=== PATIENT | female | born 1980 | race Caucasian/White ===

== ENCOUNTER 2019-10-20 15:45 | Emergency (ER) | payer BC, SELFPAY ==
[2019-10-20 16:01] VITALS: BP 135/83; PULSE 88; RESP 18; TEMP 36.7; O2SAT 100; BMI 27.3
--- NOTE | 2019-10-20 16:10 | XR_ITS ---
WS: [id number] Left foot, 3 views, 10/20/2019 Clinical Data: injury Comparison: None. Findings: No fractures or dislocations are seen. No bone destruction or erosion is noted. The joint spaces and soft tissues are normal. There is a small Achilles spur. XR/XR foot LT min 3V* [id number] Impression: Negative left foot.
[2019-10-20 16:22] VITALS: O2SAT 99
--- NOTE | 2019-10-20 16:34 | ED_ITS ---
HPI - Extremity Problem General: Chief complaint: Extremity Injury, Lower Stated complaint: left foot/ankle pain Time Seen by Provider: 10/20/19 16:05 History of Present Illness: HPI Narrative: Patient comes in today with complaints of left lower foot pain. Patient reports that 2 weeks ago her horse stepped on her foot and she felt a gotten better but today she was moving a lot more and felt crepitus and pain in the left foot. Patient does not believe that she can work with the pain. Patient appears well. Patient appears in no acute distress. MD Complaint: extremity pain and extremity swelling Review of Systems General: Reports: 10 or more systems reviewed and unremarkable except in HPI and below Musc: Reports: other (left foot pain) PFS ED PFSH: Social History Smoking and tobacco status: current every day smoker Physical Exam Const: COMMON NORMALS: no apparent distress and oriented x3 GENERAL APPEARANCE: cooperative HENMT: COMMON NORMALS: normocephalic, external ears normal, EAC's normal, TM's normal bilaterally and external nose normal HEAD & SCALP: normal to inspection and normocephalic FACE & SINUS: normal facial exam NOSE: external nose normal GENERAL EAR: hearing not grossly impaired EXTERNAL EAR: Yes external ears normal EXTERNAL AUDITORY CANAL: EAC's normal TYMPANIC MEMBRANE: TM's normal bilaterally MOUTH: oral and palatal mucosa normal THROAT: posterior oropharynx normal Eye: COMMON NORMALS: PERRL and EOMs intact bilaterally PUPIL: Yes PERRL Neck/C-Spine: COMMON NORMALS: full ROM and no lymphadenopathy Lymph: LYMPHATIC: no lymphedema noted Chest: COMMONS NORMALS: inspection of chest normal and palpation of chest normal Resp: COMMON NORMALS: normal respiratory effort and clear to auscultation bilaterally AUSCULTATION: clear to auscultation bilaterally Cardio: COMMON NORMALS: regular rate and regular rhythm RATE: regular rate RHYTHM: regular rhythm GI: COMMON NORMALS: normal to inspection, nondistended, normoactive bowel sounds and non-tender : COMMON NORMALS: Yes no CVA tenderness BLADDER/KIDNEY EXAM: Yes no CVA tenderness Back/Pelvis: COMMON NORMALS: no CVA tenderness and thoracic and lumbar spine normal to inspection Extremity: NARRATIVE EXTREMITY EXAM: Tenderness is noted to the dorsal left foot along the first metatarsal. No obvious deformity is noted minimal swelling is noted. GENERAL: Yes edema (mild left foot) Neuro: COMMON NORMALS: oriented x3, moves all extremities and no focal motor deficits Psych: COMMON NORMALS: mental status grossly normal and cooperative Skin: COMMON NORMALS: no rashes or lesions noted GENERAL SKIN EXAM: no rashes or lesions noted Course Vital Signs: Vital signs: Vital Signs Temperature 98.0 F 10/20/19 16:01 Pulse Rate 88 10/20/19 16:01 Respiratory Rate 18 10/20/19 16:01 Blood Pressure 135/83 10/20/19 16:01 Pulse Oximetry 99 10/20/19 16:22 MDM - Extremity (Nontraumatic) MDM Narrative: Medical decision making narrative: Patient comes in today with complaints of left foot pain. On exam there is some mild swelling and some soft tissue tenderness. No obvious deformity. Normal neurovascular. Differential diagnosis fracture, sprain, contusion, arthralgia. X-rays are negative for any fracture. Reviewed exam with patient with recommendations for treatment and need for follow-up. Patient reported understanding and agreed to plan. Discharge Plan Discharge Patient Disposition: Home, Self-Care Clinical Impression: Contusion of ankle or foot, left Condition: Stable Prescriptions: New diclofenac sodium 50 mg tablet,delayed release (DR/EC) 50 mg PO BID Qty: 10 RF: 0 Discharge Orders: Discharge Order (Routine); Ordered 10/20/19 Ordered By: Stas Fabian Discharge Diet: Usual diet Discharge Activity: Increase activity as tolerated Patient Instructions: Arthralgia (ED) Activity Restrictions/Additional Instructions: Activity as tolerated Drink plenty of water with medications Wear good supportive shoe Follow-up with primary care as needed Stand Alone Forms: Work/School Release Coding Level of Care Code ED Embroidery Supervisor for Chg Fwd Exam Comprehensive
[2019-10-20 17:10] VITALS: BP 117/70; PULSE 80; O2SAT 100
== END 2019-10-20 17:10 | disposition home or self-care (01) ==
LOC: ER 17:06
PROVIDERS: Emergency Provider Nurse Practitioner Family
DX: S90.32XA Contusion of left foot, initial encounter (principal); W55.19XA Other contact with horse, initial encounter
CPT/HCPCS: 73630; 99281; 99282

== ENCOUNTER 2020-05-01 13:51 | Emergency (ER) | payer BC, SELFPAY ==
[2020-05-01 14:00] VITALS: BP 143/79; PULSE 96; RESP 20; TEMP 36.9; O2SAT 99; BMI 25.4
--- NOTE | 2020-05-01 14:18 | ECG_ITS ---
[facility] Test Date: 2020-05-01 Pat Name: Mel Bianchi Department: Room: Gender: Female Research Spec: : 1980 Requested By: Pili Ash I Order Number: [id number] Antonette MD: Arabella Lund M.D. Measurements Intervals [place] Rate: 79 P: 48 NH: 163 QRS: 55 QRSD: 85 T: 29 QT: 344 QTc: 395 Interpretive Statements SINUS RHYTHM Compared to ECG 04/21/2019 15:50:02 No significant changes Electronically Signed On 05-02-2020 7:52:34 CDT by Arabella Lund M.D. [id number] f
--- NOTE | 2020-05-01 14:21 | W.ED.SOB ---
HPI - SOB/Dyspnea General: Chief Complaint: Shortness of Breath/Dyspnea Stated Complaint: sob Time Seen by Provider: 05/01/20 14:01 Source: patient Mode of arrival: ambulatory Limitations: no limitations History of Present Illness: HPI Narrative: 39-year-old female patient with a history of COPD who still smokes presents to the emergency department with a 3-day history of shortness of breath cough and wheezing. She says she has used her albuterol inhaler multiple times with no improvement. Yesterday she developed retrosternal chest pain which has persisted and so she is worried. She denies any fever, denies any sick contacts. MD elicited complaint: shortness of breath Pertinent past history: COPD Onset (ago): hour(s) (3) Timing: constant Severity: moderate Exacerbating factors: nothing Relieving factors: nothing Known history of: COPD Associated symptoms: Reports chest pain and cough; Deny abdominal pain, chest congestion, diaphoresis, dizziness, extremity pain, fever(s), hemoptysis, lightheadedness, myalgias, nausea, orthopnea, palpitations, paresthesias, polydipsia, polyuria, rash, sense of impending doom, syncope or vomiting Treatment prior to arrival: bronchodilator (but unhelpful) Review of Systems General: Reports: 10 or more systems reviewed and unremarkable except in HPI and below Const: Denies: fever(s) or diaphoresis Eyes: Denies: change in vision or blurry vision ENMT: Denies: throat pain, enlarged tonsils, odynophagia, hoarseness, mouth pain or swelling of lips/tongue Card: Reports: chest pain; Denies: palpitations, lightheadedness, syncope or orthopnea Resp: Denies: hemoptysis or chest congestion GI: Denies: abdominal pain, nausea or vomiting : Denies: flank pain, difficulty voiding, dysuria, urinary frequency, urinary urgency or urinary hesitancy Musc: Denies: extremity pain Skin/Breast: Denies: rash, pruritus or erythema Neuro: Denies: dizziness Endo: Denies: polyuria or polydipsia PFS ED PFSH: Social History Smoking and tobacco status: current every day smoker Physical Exam Const: COMMON NORMALS: no acute distress, average body habitus, patient oriented x3, no limitations, healthy appearing, alert and well nourished HENMT: COMMON NORMALS: normocephalic, atraumatic and moist oral mucous membranes HEAD & SCALP: normocephalic and atraumatic Neck/C-Spine: COMMON NORMALS: no meningeal signs and no JVD Resp: COMMON NORMALS: normal respiratory effort, No retractions, No use of accessory muscles, clear to auscultation bilaterally and percussion normal AUSCULTATION: clear to auscultation bilaterally and diminished lung sounds PERCUSSION: percussion normal Cardio: COMMON NORMALS: no JVD, regular rate, regular rhythm, S1 normal heart sound present, S2 normal heart sound present, No gallops present (Cardio), No clicks present (Cardio), No murmurs present (Cardio), No rub (Cardio) and Peripheral pulses 2+ throughout RATE: regular rate RHYTHM: regular rhythm HEART SOUNDS: S1 normal heart sound present and S2 normal heart sound present PERIPHERAL PULSES: Peripheral pulses 2+ throughout GI: COMMON NORMALS: Normal to inspection, nondistended, normoactive bowel sounds present, Soft to palpation, non-tender, No hepatosplenomegaly present, no masses and no bruits PALPATION: Yes Soft to palpation and Yes No hepatosplenomegaly present Extremity: COMMON NORMALS: normal to inspection, full ROM, capillary refill normal, no calf tenderness and no pedal edema Neuro: COMMON NORMALS: patient oriented x3 SENSORIUM/ORIENTATION: Yes alert MENINGEAL SIGNS: Yes no meningeal signs Skin: COMMON NORMALS: no rashes or lesions noted, no wounds, turgor normal, no jaundice, no petechiae and no mottling GENERAL SKIN EXAM: no rashes or lesions noted and turgor normal Course Reevaluation(s): Reevaluation #1: Discussed her lab and imaging findings with her. Negative for acute findings. She says she obtained tremendous relief following the DuoNeb breathing treatment. I believe she is having a COPD exacerbation. We will discharge her home with a prescription for prednisone and azithromycin. She voiced understanding and she is in agreement with this plan. Time: 16:36 Vital Signs: Vital signs: Vital Signs Temperature 98.4 F 05/01/20 14:00 Pulse Rate 74 05/01/20 16:54 Respiratory Rate 16 05/01/20 16:54 Blood Pressure 114/72 05/01/20 16:54 Pulse Oximetry 98 05/01/20 16:54 MDM - SOB/Dyspnea MDM Narrative: Medical decision making narrative: 59-year-old female patient who presents to the emergency department with symptoms consistent with COPD exacerbation. She has a history of COPD, continues to smoke, and had wheezing, shortness of breath at home and decreased air movement on examination. She obtained significant improvement following a DuoNeb treatment and she was managed as a case of COPD exacerbation. Medical Records: Attestation: I reviewed the patient's medical records. Lab Data: Attestation: I reviewed the patient's lab results. Labs: Lab Results 05/01/20 05/01/20 05/01/20 Range/Units 14:30 14:30 14:30 WBC 6.9 (4.0-10.0) 10^3/ uL RBC 4.33 (4.1-5.3) 10^6/u L Hgb 13.9 (11.5-15.3) g/dL Hct 42.2 (37.0-47.0) % MCV 97.5 (81-99) fL MCH 32.1 (28.0-34.0) pg MCHC 32.9 (30.0-36.0) g/dL RDW 11.8 L (12.1-15.1) % Plt Count 205 (130-400) 10^3/c mm MPV 11.3 H (7.4-10.4) fL Neut % (Auto) 58.2 % Lymph % (Auto) 31.7 % Cottle % (Auto) 6.5 % Eos % (Auto) 2.6 % Baso % (Auto) 0.9 % Neut # (Auto) 4.00 (1.8-7.7) 10^3/u L Lymph # (Auto) 2.2 (0.8-4.8) 10^3/u L Cottle # (Auto) 0.5 (0.2-0.9) 10^3/u L Eos # (Auto) 0.2 (0.0-0.8) 10^3/u L Baso # (Auto) 0.1 (0.0-0.1) 10^3/u L Nucleated RBC % (a uto) 0 % Nucleated RBCs # 0.0 /100WBC Sodium 138 (136-145) mmol/L Potassium 4.0 (3.5-5.1) mmol/L Chloride 105 (98-107) mmol/L Carbon Dioxide 20 L (22-29) mmol/L Anion Gap 17.0 (5-19) BUN 13 (6-20) mg/dL Creatinine 0.6 (0.5-0.9) mg/dL GFR Calculation 111.3 (90-130) mL/min Glucose 95 (65-115) mg/dL Calculated Osmolal ity 282 L (285-295) mOsm/k g Calcium 8.9 (8.5-10.5) mg/dL Total Bilirubin 0.3 (0.15-1.2) mg/dL AST 9 (0-32) U/L ALT 15 (0-33) U/L Alkaline Phosphata se 79 (35-105) IU/L Troponin T Gen 5 n g/L 6 (0-10) ng/L C-Reactive Protein 0.9 (0.0-4.9) mg/L Total Protein 6.9 (6.6-8.7) g/dL Albumin 4.3 (3.5-5.2) g/dL Globulin 2.6 (1.3-4.6) g/dL Imaging Data^: CXR: Radiologist's impression: [place] [address] XRay Report Signed Patient: Mel Bianchi #: [id number] : 1980Acct#:[id number] Age/Sex: 39 / FADM Date: 05/01/20 Loc: [facility]/Bed: Attending Dr: Ordering Provider/Ordering MD: Pili Ash [place] [facility] [place] of Service: 05/01/20 Procedure(s): XR chest 2V* [id number] Accession Number(s): [id number] Report Number: [id number] PROCEDURE INFORMATION: Exam: XR Chest, 2 Views Exam date and time: 05/01/2020 3:12 PM Age: 39 years old Clinical indication: Cough and shortness of breath; Smoker's cough; Patient HX: HX of copd; Additional info: SOB, cough TECHNIQUE: Imaging protocol: XR of the chest Views: 2 views. COMPARISON: CR Chest 1 [place] [id number] 04/21/2019 5:44 PM FINDINGS: Lungs: Unremarkable. No consolidation. Pleural space: Unremarkable. No pleural effusion. No pneumothorax. Heart/Mediastinum: Unremarkable. No cardiomegaly. Bones/joints: Unremarkable. XR/XR chest 2V* [id number] IMPRESSION: No acute findings. Dictated By:Jemma Armstrong Signed By:Abeba Armstrongigned Date/Time:05/01/201614 DD/ 13 EKG Data^: EKG 1: Attestation: I personally reviewed and interpreted this EKG as follows: EKG Interpretation Date: 05/01/20 EKG interpretation time: 14:37 Prior EKG tracings: not available for review Interpretation: Normal sinus rhythm. Heart rate 79 bpm. Normal axis. No ST changes. No STEMI. Discharge Plan Discharge Patient Disposition: Home Clinical Impression: Acute exacerbation of chronic obstructive airways disease Condition: Stable Prescriptions: New azithromycin 250 mg tablet See Rx Instructions .ROUTE .COMPLEX Qty: 6 RF: 0 prednisone 20 mg tablet 60 mg PO DAILY 5 Days Qty: 15 RF: 0 Discharge Orders: Discharge Order (Routine); Ordered 05/01/20 Ordered By: Pili Ash Discharge Diet: Usual diet Discharge Activity: Increase activity as tolerated Patient Instructions: Chronic Obstructive Pulmonary Disease (ED) Activity Restrictions/Additional Instructions: Return for any new or worsening symptoms. Follow-up with your primary care provider within 3 days. Use your albuterol inhaler every 4 hours for the next 2 days, then as needed thereafter. Take the antibiotic and steroid as prescribed. Stand Alone Forms: Work/School Release Discharge Date/Time: 05/01/20 16:55 Coding Level of Care Code ED Scrum Master for Chg Fwd Exam Comprehensive
--- NOTE | 2020-05-01 14:30 | PC.NURSE ---
VO WITH READBACK FROM DR. ECHEVARRIA TO HOLD IV UNTIL INSTRUCTED FURTHER
[2020-05-01 14:36] LABS: Basophils # 0.1 10^3/uL (0.0-0.1); Basophils % 0.9 %; Eosinophils # 0.2 10^3/uL (0.0-0.8); Eosinophils % 2.6 %; Hematocrit 42.2 % (37.0-47.0); Hemoglobin 13.9 g/dL (11.5-15.3); Lymphocytes # 2.2 10^3/uL (0.8-4.8); Lymphocytes % 31.7 %; Mean Corpuscular HGB Conc 32.9 g/dL (30.0-36.0); Mean Corpuscular Hemoglobin 32.1 pg (28.0-34.0); Mean Corpuscular Volume 97.5 fL (81-99); Mean Platelet Volume 11.3 fL (7.4-10.4); Monocytes # 0.5 10^3/uL (0.2-0.9); Monocytes % 6.5 %; Neutrophils % 58.2 %; Nucleated Red Blood Cells % 0 %; Platelet Count 205 10^3/cmm (130-400); Red Blood Count 4.33 10^6/uL (4.1-5.3); Red Cell Distribution Width 11.8 % (12.1-15.1); White Blood Count 6.9 10^3/uL (4.0-10.0)
[2020-05-01 14:38] VITALS: BP 109/87; PULSE 82; RESP 20; O2SAT 97
[2020-05-01 14:59] VITALS: PULSE 79; RESP 20; O2SAT 97
[2020-05-01] MEDS: ipratropium-albuterol 3 mL Neb INHALATION (14:59)
[2020-05-01 15:00] VITALS: BP 109/87; PULSE 78; RESP 18; O2SAT 96
[2020-05-01 15:01] LABS: Troponin T (5th) Once 6 ng/L (0-10)
[2020-05-01 15:03] VITALS: PULSE 80
--- NOTE | 2020-05-01 15:11 | XRR_ITS ---
PROCEDURE INFORMATION: Exam: XR Chest, 2 Views Exam date and time: 05/01/2020 3:12 PM Age: 39 years old Clinical indication: Cough and shortness of breath; Smoker's cough; Patient HX: HX of copd; Additional info: SOB, cough TECHNIQUE: Imaging protocol: XR of the chest Views: 2 views. COMPARISON: CR Chest 1 [place] [id number] 04/21/2019 5:44 PM FINDINGS: Lungs: Unremarkable. No consolidation. Pleural space: Unremarkable. No pleural effusion. No pneumothorax. Heart/Mediastinum: Unremarkable. No cardiomegaly. Bones/joints: Unremarkable. XR/XR chest 2V* [id number] IMPRESSION: No acute findings.
[2020-05-01 15:22] LABS: Alanine Aminotransferase 15 U/L (0-33); Albumin Level 4.3 g/dL (3.5-5.2); Alkaline Phosphatase 79 IU/L (35-105); Aspartate Amino Transferase 9 U/L (0-32); Blood Urea Nitrogen 13 mg/dL (6-20); C Reactive Protein 0.9 mg/L (0.0-4.9); Calcium 8.9 mg/dL (8.5-10.5); Carbon Dioxide 20 mmol/L (22-29); Chloride 105 mmol/L (98-107); Globulin 2.6 g/dL (1.3-4.6); Glomerular Filtration Rate 111.3 mL/min (90-130); Glucose 95 mg/dL (65-115); Osmolality Calculated 282 mOsm/kg (285-295); Sodium 138 mmol/L (136-145); Total Bilirubin 0.3 mg/dL (0.15-1.2); Total Protein 6.9 g/dL (6.6-8.7)
[2020-05-01] MEDS: predniSONE 20 mg Tablet 60 MG PO (16:51)
[2020-05-01 16:54] VITALS: BP 114/72; PULSE 74; RESP 16; O2SAT 98
== END 2020-05-01 16:55 | disposition home or self-care (01) ==
PROVIDERS: Emergency Provider Family Medicine
DX: J44.1 Chronic obstructive pulmonary disease with (acute) exacerbation (principal); F17.210 Nicotine dependence, cigarettes, uncomplicated
CPT/HCPCS: 12345; 36415; 71046; 80053; 84484; 85025; 86140; 93005; 94640; 99282; 99284; J7512

== ENCOUNTER 2020-06-24 11:21 | Emergency (ER) | payer SELFPAY ==
[2020-06-24 11:49] VITALS: BP 130/84; PULSE 85; RESP 26; TEMP 36.8; O2SAT 96; BMI 26.4
--- NOTE | 2020-06-24 11:56 | XRR_ITS ---
PROCEDURE INFORMATION: Exam: XR Chest, 1 View Exam date and time: 06/24/2020 12:05 PM Age: 40 years old Clinical indication: Pain and condition or disease; Lung condition and disease; Copd; Complications not specified; Chest pain; Prior surgery; Surgery type: Gb, tubal TECHNIQUE: Imaging protocol: XR of the chest Views: 1 view. COMPARISON: CR XR chest 2V* [id number] 05/01/2020 3:28 PM FINDINGS: Lungs: Unremarkable. No consolidation. Pleural space: Unremarkable. No pleural effusion. No pneumothorax. Heart/Mediastinum: Unremarkable. No cardiomegaly. Bones/joints: Unremarkable. XR/XR chest 1V portable [id number] IMPRESSION: No acute findings.
--- NOTE | 2020-06-24 11:56 | ECG_ITS ---
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
--- NOTE | 2020-06-24 11:58 | ED_ITS ---
HPI - Chest Pain General: Chief Complaint: Chest Pain Stated Complaint: CP, R ARM PAIN Time Seen by Provider: 06/24/20 11:41 Source: patient Mode of arrival: ambulatory Limitations: no limitations History of Present Illness: MD complaint: chest pain Onset (ago): day(s) (4) Timing of current episode: episodic Prior episodes: No Onset: during rest Pain location: substernal Pain radiation: left arm, abdomen and left shoulder Severity: severe Quality: sharp Relieving factors: nothing Exacerbating factors: nothing Associated symptoms: Reports abdominal pain and dyspnea; Deny diaphoresis, fever(s), leg edema, nausea, palpitations, sense of impending doom, syncope or vomiting Treatment prior to arrival: none Review of Systems General: Reports: 10 or more systems reviewed and unremarkable except in HPI and below Const: Denies: fever(s) or diaphoresis Eyes: Denies: change in vision or blurry vision ENMT: Denies: throat pain, enlarged tonsils, odynophagia, hoarseness, mouth pain or swelling of lips/tongue Card: Denies: palpitations or syncope Resp: Reports: dyspnea GI: Reports: abdominal pain; Denies: nausea or vomiting : Denies: flank pain, difficulty voiding, dysuria, urinary frequency, urinary urgency or urinary hesitancy Musc: Denies: neck pain, back pain or extremity swelling Skin/Breast: Denies: rash, pruritus or erythema Neuro: Denies: headache(s), numbness in extremities or weakness in extremities Endo: Denies: polyuria, polydipsia or tired all the time [facility] ED PFSH: Social History Smoking and tobacco status: current every day smoker Physical Exam Const: COMMON NORMALS: no acute distress, average body habitus, patient oriented x3, no limitations, healthy appearing, alert and well nourished HENMT: COMMON NORMALS: normocephalic, atraumatic and moist oral mucous membranes HEAD & SCALP: normocephalic and atraumatic Neck/C-Spine: COMMON NORMALS: full ROM, supple, no meningeal signs, no JVD and No carotid bruits Chest: COMMONS NORMALS: normal inspection of the chest and normal palpation of entire chest wall Resp: COMMON NORMALS: normal respiratory effort, No retractions, No use of accessory muscles, clear to auscultation bilaterally and percussion normal AUSCULTATION: clear to auscultation bilaterally PERCUSSION: percussion normal Cardio: COMMON NORMALS: no JVD, regular rate, regular rhythm, S1 normal heart sound present, S2 normal heart sound present, No gallops present (Cardio), No clicks present (Cardio), No murmurs present (Cardio), No rub (Cardio) and Peripheral pulses 2+ throughout RATE: regular rate RHYTHM: regular rhythm HEART SOUNDS: S1 normal heart sound present and S2 normal heart sound present PERIPHERAL PULSES: Peripheral pulses 2+ throughout GI: COMMON NORMALS: Soft to palpation, non-tender, No hepatosplenomegaly present, no masses and no bruits PALPATION: Yes Soft to palpation, Yes Tenderness to palpation present (GI) (epigastric) and Yes No hepatosplenomegaly present Extremity: COMMON NORMALS: normal to inspection, full ROM, capillary refill normal, no calf tenderness and no pedal edema Neuro: COMMON NORMALS: patient oriented x3 SENSORIUM/ORIENTATION: Yes alert MENINGEAL SIGNS: Yes no meningeal signs Skin: COMMON NORMALS: no rashes or lesions noted, no wounds, turgor normal, no jaundice, no petechiae and no mottling GENERAL SKIN EXAM: no rashes or lesions noted and turgor normal Course Reevaluation(s): Reevaluation #1: Discussed her lab and imaging findings with her. Negative for acute findings. She obtained a bit of relief following the GI cocktail. She does not want the intravenous Protonix. I advised that she needs to cut down on her coffee intake and will give her a prescription for Protonix and famotidine. She voiced understanding and is in agreement with the plan. Time: 15:17 Vital Signs: Vital signs: Vital Signs Temperature 98.2 F 06/24/20 11:49 Pulse Rate 68 06/24/20 15:45 Respiratory Rate 18 06/24/20 15:45 Blood Pressure 128/74 06/24/20 15:45 Pulse Oximetry 100 06/24/20 15:45 MDM - Chest Pain MDM Narrative: Medical decision making narrative: 40-year-old female patient who presents to the emergency department with chest/epigastric pain. Evaluation is more consistent with gastritis none chest pain. He had negative high- sensitivity troponin x2. Got relief with a GI cocktail. She is discharged home with a prescription for Protonix and famotidine. She drinks an excessive amount of coffee which I think is contributing to her symptoms. Medical Records: Attestation: I reviewed the patient's medical records. Lab Data: Attestation: I reviewed the patient's lab results. Labs: Lab Results 06/24/20 06/24/20 06/24/20 Range/Units 12:10 12:10 12:10 WBC Cancelled Corrected WBC Cancelled RBC Cancelled Hgb Cancelled Hct Cancelled MCV Cancelled MCH Cancelled MCHC Cancelled RDW Cancelled Plt Count Cancelled MPV Cancelled Gran % Cancelled Neut % (Auto) Cancelled Lymph % (Auto) Cancelled [place] % (Auto) Cancelled Eos % (Auto) Cancelled Baso % (Auto) Cancelled Neut # (Auto) Cancelled Lymph # (Auto) Cancelled [place] # (Auto) Cancelled Eos # (Auto) Cancelled Baso # (Auto) Cancelled Absolute Gran (aut o) Cancelled Nucleated RBC % (a uto) Cancelled Nucleated RBCs # Cancelled PT 13.50 (12.1-14.9) SECO NDS INR 1.00 (0.8-1.2) D-Dimer <= 0.27 (0-0.59) ug/mIFE U Sodium 135 L (136-145) mmol/L Potassium 4.1 (3.5-5.1) mmol/L Chloride 103 (98-107) mmol/L Carbon Dioxide 23 (22-29) mmol/L Anion Gap 13.1 (5-19) BUN 10 (6-20) mg/dL Creatinine 0.6 (0.5-0.9) mg/dL GFR Calculation 110.7 (90-130) mL/min Glucose 77 (65-115) mg/dL Calculated Osmolal ity 278 L (285-295) mOsm/k g Calcium 9.4 (8.5-10.5) mg/dL Total Bilirubin 0.4 (0.15-1.2) mg/dL AST 14 (0-32) U/L ALT 22 (0-33) U/L Alkaline Phosphata se 89 (35-105) IU/L Troponin T Baselin e (0-10) ng/L Troponin T 120 Min [place] (0-10) ng/L Delta Troponin T (0-10) ABS# Total Protein 6.6 (6.6-8.7) g/dL Albumin 4.1 (3.5-5.2) g/dL Globulin 2.5 (1.3-4.6) g/dL Lipase 25 (13-60) U/L HCG, Qual (Negative) Urine Color (Yellow) Urine Appearance (CLEAR) Urine pH (5-7) Ur Specific Gravit y (1.005-1.030) Urine Protein (Negative) Urine Glucose (UA) (Normal) Urine Ketones (Negative) Urine Blood (Negative) Urine Nitrate (Negative) Urine Bilirubin (Negative) Urine Urobilinogen (Negative) mg/dL Ur Leukocyte [place] (Negative) Urine RBC (0-2) /hpf Urine WBC (0-5) /hpf Ur Squamous Epith Cells (0-5) /hpf Amorphous Sediment Urine Bacteria (NONE) /hpf Urine Yeast /hpf Urine Opiates Scre en (Negative) ng/mL Ur Barbiturates Sc reen (Negative) ng/mL Ur Phencyclidine S crn (Negative) ng/mL Ur Amphetamines Sc reen (Negative) ng/mL U Benzodiazepines Scrn (Negative) ng/mL Urine Cocaine Scre en (Negative) ng/mL U Marijuana (THC) Screen (Negative) ng/mL 06/24/20 06/24/20 06/24/20 Range/Units 12:10 12:31 12:31 WBC Corrected WBC RBC Hgb Hct MCV MCH MCHC RDW Plt Count MPV Gran % Neut % (Auto) Lymph % (Auto) [place] % (Auto) Eos % (Auto) Baso % (Auto) Neut # (Auto) Lymph # (Auto) [place] # (Auto) Eos # (Auto) Baso # (Auto) Absolute Gran (aut o) Nucleated RBC % (a uto) Nucleated RBCs # PT (12.1-14.9) SECO NDS INR (0.8-1.2) D-Dimer (0-0.59) ug/mIFE U Sodium (136-145) mmol/L Potassium (3.5-5.1) mmol/L Chloride (98-107) mmol/L Carbon Dioxide (22-29) mmol/L Anion Gap (5-19) BUN (6-20) mg/dL Creatinine (0.5-0.9) mg/dL GFR Calculation (90-130) mL/min Glucose (65-115) mg/dL Calculated Osmolal ity (285-295) mOsm/k g Calcium (8.5-10.5) mg/dL Total Bilirubin (0.15-1.2) mg/dL AST (0-32) U/L ALT (0-33) U/L Alkaline Phosphata se (35-105) IU/L Troponin T Baselin e 6 (0-10) ng/L Troponin T 120 Min [place] (0-10) ng/L Delta Troponin T (0-10) ABS# Total Protein (6.6-8.7) g/dL Albumin (3.5-5.2) g/dL Globulin (1.3-4.6) g/dL Lipase (13-60) U/L HCG, Qual Negative (Negative) Urine Color (Yellow) Urine Appearance (CLEAR) Urine pH (5-7) Ur Specific Gravit y (1.005-1.030) Urine Protein (Negative) Urine Glucose (UA) (Normal) Urine Ketones (Negative) Urine Blood (Negative) Urine Nitrate (Negative) Urine Bilirubin (Negative) Urine Urobilinogen (Negative) mg/dL Ur Leukocyte Vani ase (Negative) Urine RBC (0-2) /hpf Urine WBC (0-5) /hpf Ur Squamous Epith Cells (0-5) /hpf Amorphous Sediment Urine Bacteria (NONE) /hpf Urine Yeast /hpf Urine Opiates Scre en Negative (Negative) ng/mL Ur Barbiturates Sc reen Negative (Negative) ng/mL Ur Phencyclidine S crn Negative (Negative) ng/mL Ur Amphetamines Sc reen Negative (Negative) ng/mL U Benzodiazepines Scrn Negative (Negative) ng/mL Urine Cocaine Scre en Negative (Negative) ng/mL U Marijuana (THC) Screen Negative (Negative) ng/mL 06/24/20 06/24/20 06/24/20 Range/Units 12:31 13:52 13:52 WBC 9.5 Corrected WBC RBC 4.24 Hgb 13.5 Hct 41.4 MCV 97.6 MCH 31.8 MCHC 32.6 RDW 11.9 L Plt Count 223 MPV 11.2 H Gran % Neut % (Auto) 65.6 Lymph % (Auto) 26.6 [place] % (Auto) 5.4 Eos % (Auto) 1.5 Baso % (Auto) 0.7 Neut # (Auto) 6.21 Lymph # (Auto) 2.5 [place] # (Auto) 0.5 Eos # (Auto) 0.1 Baso # (Auto) 0.1 Absolute Gran (aut o) Nucleated RBC % (a uto) 0 Nucleated RBCs # 0.0 PT (12.1-14.9) SECO NDS INR (0.8-1.2) D-Dimer (0-0.59) ug/mIFE U Sodium (136-145) mmol/L Potassium (3.5-5.1) mmol/L Chloride (98-107) mmol/L Carbon Dioxide (22-29) mmol/L Anion Gap (5-19) BUN (6-20) mg/dL Creatinine (0.5-0.9) mg/dL GFR Calculation (90-130) mL/min Glucose (65-115) mg/dL Calculated Osmolal ity (285-295) mOsm/k g Calcium (8.5-10.5) mg/dL Total Bilirubin (0.15-1.2) mg/dL AST (0-32) U/L ALT (0-33) U/L Alkaline Phosphata se (35-105) IU/L Troponin T Baselin e (0-10) ng/L Troponin T 120 Min [place] 6.00 (0-10) ng/L Delta Troponin T 0 (0-10) ABS# Total Protein (6.6-8.7) g/dL Albumin (3.5-5.2) g/dL Globulin (1.3-4.6) g/dL Lipase (13-60) U/L HCG, Qual (Negative) Urine Color Straw (Yellow) Urine Appearance Sl hazy (CLEAR) Urine pH 7 (5-7) Ur Specific Gravit y 1.005 (1.005-1.030) Urine Protein Neg (Negative) Urine Glucose (UA) Norm (Normal) Urine Ketones Negative (Negative) Urine Blood Neg (Negative) Urine Nitrate Negative (Negative) Urine Bilirubin Neg (Negative) Urine Urobilinogen Neg (Negative) mg/dL Ur Leukocyte Vani ase Negative (Negative) Urine RBC 0-4 H (0-2) /hpf Urine WBC 0-4 H (0-5) /hpf Ur Squamous Epith Cells 15-25 H (0-5) /hpf Amorphous Sediment Not Reportable Urine Bacteria 2+ H (NONE) /hpf Urine Yeast 2+ H /hpf Urine Opiates Scre en (Negative) ng/mL Ur Barbiturates Sc reen (Negative) ng/mL Ur Phencyclidine S crn (Negative) ng/mL Ur Amphetamines Sc reen (Negative) ng/mL U Benzodiazepines Scrn (Negative) ng/mL Urine Cocaine Scre en (Negative) ng/mL U Marijuana (THC) Screen (Negative) ng/mL Imaging Data^: CXR: Attestation: I personally reviewed and interpreted this imaging study as follows: Radiologist's impression: [place] [address] XRay Report Signed Patient: Mel Bianchi #: [id number] : 1980Acct#:[id number] Age/Sex: 40 / FADM Date: 06/24/20 Loc: ERRoom/Bed: Attending Dr: Ordering Provider/Ordering MD: Pili Ash MD, [facility] [place] Date of Service: 06/24/20 Procedure(s): XR chest 1V portable [id number] Accession Number(s): [id number] Report Number: [id number] PROCEDURE INFORMATION: Exam: XR Chest, 1 View Exam date and time: 06/24/2020 12:05 PM Age: 40 years old Clinical indication: Pain and condition or disease; Lung condition and disease; Copd; Complications not specified; Chest pain; Prior surgery; Surgery type: Gb, tubal TECHNIQUE: Imaging protocol: XR of the chest Views: 1 view. COMPARISON: CR XR chest 2V* [id number] 05/01/2020 3:28 PM FINDINGS: Lungs: Unremarkable. No consolidation. Pleural space: Unremarkable. No pleural effusion. No pneumothorax. Heart/Mediastinum: Unremarkable. No cardiomegaly. Bones/joints: Unremarkable. XR/XR chest 1V portable [id number] IMPRESSION: No acute findings. Dictated By:Zacarias Mccain MD Signed By:Zacarias Mccain MDSigned Date/Time:06/24/20 1229 DD/ 1227 EKG Data^: EKG 1: Attestation: I personally reviewed and interpreted this EKG as follows: EKG interpretation date: 06/24/20 EKG interpretation time: 11:32 Prior EKG tracings: not available for review Interpretation: Sinus rhythm. Heart rate [address] changes. EKG 2: Attestation: I personally reviewed and interpreted this EKG as follows: EKG interpretation date: 06/24/20 EKG interpretation time: 13:50 Prior EKG tracings: available for review Interpretation: Normal sinus rhythm. Heart rate [address] changes. Normal axis. Discharge Plan Discharge Patient Disposition: Home Clinical Impression: Acute gastritis Qualifiers: Gastritis type: unspecified gastritis Gastritis bleeding: without bleeding Qualified Code(s): K29.00 - Acute gastritis without bleeding Condition: Stable Prescriptions: New Protonix 40 mg tablet,delayed release (DR/EC) 40 mg PO DAILY 28 Days RF: 0 famotidine 40 mg tablet 40 mg PO BID Qty: 60 RF: 0 Continued albuterol sulfate 90 mcg/actuation Hfa Aerosol Inhaler 1 inh INHALATION QID PRN (Reason: Shortness Of Breath) RF: 0 Advil 200 mg Tablet 200 - 400 mg PO PRN PRN (Reason: Pain) RF: 0 Discharge Orders: Discharge Order (Routine); Ordered 06/24/20 Ordered By: Pili Ash Discharge Diet: As Directed Discharge Activity: Increase activity as tolerated Patient Instructions: Gastritis (ED), Diet for Ulcers and Gastritis (ED) Activity Restrictions/Additional Instructions: Return for any new or worsening symptoms. Follow-up with your primary care provider within 1 week. Avoid caffeinated product as much as possible, avoid spicy foods, avoid medications like ibuprofen or naproxen. Stand Alone Forms: Work/School Release Discharge Date/Time: 06/24/20 15:50 Coding Level of Care Code ED Fluorescent Lighting Model Maker for Chg Fwd Exam Comprehensive
[2020-06-24] MEDS: lidocaine 2% viscous 15 ML, aluminum-mag hydrox-simethicon 30 ML, sucralfate oral liq 1 GM PO (12:07)
[2020-06-24 12:40] LABS: Alanine Aminotransferase 22 U/L (0-33); Albumin Level 4.1 g/dL (3.5-5.2); Alkaline Phosphatase 89 IU/L (35-105); Anion Gap 13.1 (5-19); Aspartate Amino Transferase 14 U/L (0-32); Blood Urea Nitrogen 10 mg/dL (6-20); Calcium 9.4 mg/dL (8.5-10.5); Carbon Dioxide 23 mmol/L (22-29); Chloride 103 mmol/L (98-107); Globulin 2.5 g/dL (1.3-4.6); Glomerular Filtration Rate 110.7 mL/min (90-130); Glucose 77 mg/dL (65-115); Lipase 25 U/L (13-60); Osmolality Calculated 278 mOsm/kg (285-295); Potassium 4.1 mmol/L (3.5-5.1); Sodium 135 mmol/L (136-145); Total Bilirubin 0.4 mg/dL (0.15-1.2); Total Protein 6.6 g/dL (6.6-8.7)
[2020-06-24 12:41] LABS: Troponin(5th) Baseline 6 ng/L (0-10)
[2020-06-24 12:44] LABS: HCG Qualitative Urine. Negative (Negative)
[2020-06-24] MEDS: nitroglycerin 0.4 mg sublingual Tablet SUBLINGUAL (12:59)
[2020-06-24 13:02] LABS: D Dimer <= 0.27 ug/mIFEU (0-0.59)
[2020-06-24 13:20] LABS: Add Urine Microscopic? YES; Amphetamines Screen Urine Negative (Negative); Barbiturates Screen Urine Negative (Negative); Benzodiazepines Screen Urine Negative (Negative); Bilirubin Urine Neg (Negative); Blood Urine Neg (Negative); Cocaine Screen Urine Negative (Negative); Glucose Urine UA Norm (Normal); Ketones Urine Negative (Negative); Leukocyte Esterase Urine Negative (Negative); Nitrate Urine Negative (Negative); Opiate Screen Urine Negative (Negative); PCP Screen Urine Negative (Negative); Protein Urine Neg (Negative); Specific Gravity, Urine 1.005 (1.005-1.030); THC Screen Urine Negative (Negative); Urine Appearance SL Hazy (CLEAR); Urine Color Straw (Yellow); Urobilinogen Urine Neg (Negative); pH Urine 7 (5-7)
[2020-06-24 13:22] LABS: Add Urine Culture? No; Bacteria Urine 2+ /hpf; RBC Urine 0-4 /hpf (0-2); Squamous Epithelial Cell Urine 15-25 /hpf (0-5); WBC Urine 0-4 /hpf (0-5)
[2020-06-24] MEDS: morphine 4 mg/mL SDV 1 mL IVP (13:26)
[2020-06-24] MEDS: ondansetron 2 mg/ML SDV 2 mL 4 MG IVP (13:26)
--- NOTE | 2020-06-24 13:56 | ECG_ITS ---
[facility] Test Date: 2020-06-24 Pat Name: Mel Bianchi Department: Room: Gender: Female Computer Security Manager: : 1980 Requested By: Pili Ash I Order Number: [id number] Reading MD: LUCERO ESPINOZA Measurements Intervals [place] Rate: 64 P: 44 WA: 142 QRS: 58 QRSD: 82 T: 29 QT: 376 QTc: 390 Interpretive Statements SINUS RHYTHM Compared to ECG 05/01/2020 14:37:04 No significant changes Electronically Signed On 06-24-2020 18:21:46 CDT by LUCERO ESPINOZA [id number]
[2020-06-24 14:11] LABS: Basophils # 0.1 10^3/uL (0.0-0.1); Basophils % 0.7 %; Eosinophils # 0.1 10^3/uL (0.0-0.8); Eosinophils % 1.5 %; Hematocrit 41.4 % (37.0-47.0); Hemoglobin 13.5 g/dL (11.5-15.3); Lymphocytes # 2.5 10^3/uL (0.8-4.8); Lymphocytes % 26.6 %; Mean Corpuscular HGB Conc 32.6 g/dL (30.0-36.0); Mean Corpuscular Hemoglobin 31.8 pg (28.0-34.0); Mean Corpuscular Volume 97.6 fL (81-99); Mean Platelet Volume 11.2 fL (7.4-10.4); Monocytes # 0.5 10^3/uL (0.2-0.9); Monocytes % 5.4 %; Neutrophils # 6.21 10^3/uL (1.8-7.7); Neutrophils % 65.6 %; Nucleated Red Blood Cells % 0 %; Platelet Count 223 10^3/cmm (130-400); Red Blood Count 4.24 10^6/uL (4.1-5.3); Red Cell Distribution Width 11.9 % (12.1-15.1); White Blood Count 9.5 10^3/uL (4.0-10.0)
[2020-06-24 14:48] LABS: Troponin 5 2HR Delta 0 ABS# (0-10)
[2020-06-24 15:45] VITALS: BP 128/74; PULSE 68; RESP 18; O2SAT 100
== END 2020-06-24 15:50 | disposition home or self-care (01) ==
PROVIDERS: Emergency Provider Family Medicine
DX: K29.00 Acute gastritis without bleeding (principal); F17.210 Nicotine dependence, cigarettes, uncomplicated
CPT/HCPCS: 12345; 36415; 71045; 80053; 80306; 81001; 81025; 83690; 84484; 85025; 85378; 85610; 93005; 96375; 99283; J2270; J2405

== ENCOUNTER 2020-09-14 13:15 | Emergency (ER) | payer SELFPAY ==
[2020-09-14 13:34] VITALS: BP 138/87; PULSE 74; RESP 14; TEMP 36.1; O2SAT 99; BMI 31.1
--- NOTE | 2020-09-14 14:24 | ECG_ITS ---
[facility] Test Date: 2020-09-14 Pat Name: Mel Bianchi Department: Room: Gender: Female Credit Analyst: : 1980 Requested By: Lambert Medellin Order Number: [id number] Antonette MD: Alexey Mckeon M.D. Measurements Intervals [place] Rate: 58 P: 24 WA: 142 QRS: 83 QRSD: 80 T: 40 QT: 393 QTc: 388 Interpretive Statements SINUS BRADYCARDIA Compared to ECG 06/24/2020 13:49:55 Sinus rhythm no longer present Electronically Signed On 09-14-2020 17:57:42 INFRASTRUCTURE ARCHITECT by Alexey Mckeon M.D. [id number]
--- NOTE | 2020-09-14 14:24 | XR_ITS ---
WS: [id number] Portable AP upright chest, 09/14/2020 Clinical Data: near syncope Comparison: Portable chest, 06/24/2020. Findings: No nodules, masses or effusions are seen. The heart is normal. The pulmonary vascularity is not increased. No pneumonia or pneumothorax is seen. XR/XR chest 1V portable [id number] Impression: Negative chest.
--- NOTE | 2020-09-14 14:25 | W.ED.DIZZY ---
HPI - Dizziness General: Chief Complaint: Dizziness Stated Complaint: LIGHT HEADED, FALLING Time Seen by Provider: 09/14/20 14:14 History of Present Illness: HPI Narrative: Patient is a well-appearing 40-year-old female seen for near syncope. She states that for the last week or so, she feels near syncopal anytime she stands up. She describes the sensation as I am about to pass out. Sometimes her vision falters at the same time. Sometimes she has tingling and numbness in her hands at the same time. No point time and she felt chest pain, chest pressure, shortness of breath, diaphoresis, and denies recent sickness or fever. She has no aches and no cough and no dysuria. She denies headache associated with it. She has no lateralizing weakness or deficits that she remembers. She takes no medications for blood pressure and her only known medical history is COPD with active smoking. Review of Systems General: Reports: 10 or more systems reviewed and unremarkable except in HPI and below PFSH ED PFSH: Social History Smoking and tobacco status: current every day smoker Female Reproductive History: Date of last menstrual period: 06/20/20 Physical Exam Const: COMMON NORMALS: no acute distress, patient oriented x3 and alert HENMT: COMMON NORMALS: normocephalic and atraumatic HEAD & SCALP: normocephalic and atraumatic Eye: COMMON NORMALS: Equal, round and reactive pupils present, EOMs intact bilaterally and no scleral icterus PUPIL: Yes Equal, round and reactive pupils present Resp: COMMON NORMALS: normal respiratory effort and No retractions Cardio: COMMON NORMALS: regular rhythm and No murmurs present (Cardio) RATE: bradycardic RHYTHM: regular rhythm OTHER: Patient felt near syncopal almost immediately upon standing from the side of the bed. She was able to sit down safely without losing consciousness. GI: COMMON NORMALS: Normal to inspection, nondistended, normoactive bowel sounds present, Soft to palpation and non-tender PALPATION: Yes Soft to palpation Neuro: COMMON NORMALS: patient oriented x3 SENSORIUM/ORIENTATION: Yes alert Skin: COMMON NORMALS: no rashes or lesions noted GENERAL SKIN EXAM: no rashes or lesions noted Course Vital Signs: Vital signs: Vital Signs Temperature 97.0 F L 09/14/20 13:34 Pulse Rate 65 09/14/20 16:19 Respiratory Rate 71 H 09/14/20 14:56 Blood Pressure 116/65 09/14/20 16:19 Pulse Oximetry 100 09/14/20 16:19 MDM - Dizziness MDM Narrative: Medical decision making narrative: Patient remained hemodynamically stable throughout ED course. Symptoms are consistent with orthostatic hypotension. When orthostatic vital signs are taken, blood pressure and heart rate remained stable, however she becomes symptomatic every time she stands up. She was given a liter of normal saline bolus. EKG, chest x-ray, labs are noncontributory. I do not suspect ACS, dehydration, acute kidney injury, arrhythmia, or any other emergent process warranting further work-up at this time. She will be discharged home in stable and improved condition with follow-up to primary care as needed. She was encouraged to drink more water and we talked about strategies to mitigate the risk of falling or passing out. She knows that she needs to stand up slowly from a seated position both at home and at work. She shows good understanding and agrees to the plan. Lab Data: Labs: Lab Results 09/14/20 09/14/20 09/14/20 Range/Units 15:30 15:30 15:30 WBC 9.1 (4.0-10.0) 10^3/ uL RBC 4.66 (4.1-5.3) 10^6/u L Hgb 15.2 (11.5-15.3) g/dL Hct 44.2 (37.0-47.0) % MCV 94.8 (81-99) fL MCH 32.6 (28.0-34.0) pg MCHC 34.4 (30.0-36.0) g/dL RDW 11.8 L (12.1-15.1) % Plt Count 269 (130-400) 10^3/c mm MPV 11.4 H (7.4-10.4) fL Neut % (Auto) 59.4 % Lymph % (Auto) 33.0 % [place] % (Auto) 4.2 % Eos % (Auto) 2.1 % Baso % (Auto) 1.0 % Neut # (Auto) 5.41 (1.8-7.7) 10^3/u L Lymph # (Auto) 3.0 (0.8-4.8) 10^3/u L [place] # (Auto) 0.4 (0.2-0.9) 10^3/u L Eos # (Auto) 0.2 (0.0-0.8) 10^3/u L Baso # (Auto) 0.1 (0.0-0.1) 10^3/u L Nucleated RBC % (a uto) 0 % Nucleated RBCs # 0.0 /100WBC Sodium 137 (136-145) mmol/L Potassium 4.0 (3.5-5.1) mmol/L Chloride 98 (98-107) mmol/L Carbon Dioxide 29 (22-29) mmol/L Anion Gap 14.0 (5-19) BUN 9 (6-20) mg/dL Creatinine 0.7 (0.5-0.9) mg/dL GFR Calculation 92.7 (90-130) mL/min Glucose 89 (65-115) mg/dL Calculated Osmolal ity 282 L (285-295) mOsm/k g Calcium 9.9 (8.5-10.5) mg/dL Total Bilirubin 0.4 (0.15-1.2) mg/dL AST 16 (0-32) U/L ALT 26 (0-33) U/L Alkaline Phosphata se 96 (35-105) IU/L Troponin T Gen 5 n g/L 6 (0-10) ng/L Total Protein 7.4 (6.6-8.7) g/dL Albumin 4.8 (3.5-5.2) g/dL Globulin 2.6 (1.3-4.6) g/dL TSH 1.18 (0.27-4.20) uIU/ mL EKG Data^: EKG 1: EKG interpretation date: 09/14/20 EKG interpretation time: 14:49 Interpretation: Sinus bradycardia, rate of 59, no ST elevation or depression, intervals within normal limits. Normal T wave morphology. Normal GA interval. Discharge Plan Discharge Patient Disposition: Home Clinical Impression: Orthostatic hypotension Condition: Stable Prescriptions: No Action albuterol sulfate 90 mcg/actuation Hfa Aerosol Inhaler 1 inh INHALATION QID PRN (Reason: Shortness Of Breath) RF: 0 ibuprofen [Advil] 200 mg Tablet 200 - 400 mg PO PRN PRN (Reason: Pain) RF: 0 Discharge Orders: Discharge ED (Routine); Ordered 09/14/20 Ordered By: Lambert Medellin Discharge Diet: Usual diet Discharge Activity: Increase activity as tolerated Patient Instructions: Lightheadedness (ED) Activity Restrictions/Additional Instructions: Your EKG, chest x-ray, blood tests are all reassuring. I believe you are suffering from orthostatic hypotension. You can combat this by getting up from seated position very slowly and keeping well-hydrated. Please try replacing coffee with water and drink higher volumes to keep this from happening in the future. Coding Level of Care Code ED Universal Branch Consultant for Chg Fwd Exam Detailed
[2020-09-14 14:56] VITALS: BP 116/83; RESP 71; O2SAT 96
[2020-09-14 15:00] VITALS: BP 128/80; BP 141/78; BP 159/84; PULSE 69; PULSE 72
[2020-09-14] MEDS: sodium chloride 0.9% 1,000 ML 999 ML IV (15:49)
[2020-09-14 15:54] LABS: Basophils # 0.1 10^3/uL (0.0-0.1); Eosinophils # 0.2 10^3/uL (0.0-0.8); Eosinophils % 2.1 %; Hematocrit 44.2 % (37.0-47.0); Hemoglobin 15.2 g/dL (11.5-15.3); Mean Corpuscular HGB Conc 34.4 g/dL (30.0-36.0); Mean Corpuscular Hemoglobin 32.6 pg (28.0-34.0); Mean Corpuscular Volume 94.8 fL (81-99); Mean Platelet Volume 11.4 fL (7.4-10.4); Monocytes # 0.4 10^3/uL (0.2-0.9); Monocytes % 4.2 %; Neutrophils # 5.41 10^3/uL (1.8-7.7); Neutrophils % 59.4 %; Nucleated Red Blood Cells % 0 %; Platelet Count 269 10^3/cmm (130-400); Red Blood Count 4.66 10^6/uL (4.1-5.3); Red Cell Distribution Width 11.8 % (12.1-15.1); White Blood Count 9.1 10^3/uL (4.0-10.0)
[2020-09-14 15:59] VITALS: BP 159/84; PULSE 64; O2SAT 98
[2020-09-14 16:19] VITALS: BP 116/65; PULSE 65; O2SAT 100
[2020-09-14 16:39] LABS: Troponin T (5th) Once 6 ng/L (0-10)
[2020-09-14 16:58] LABS: Alanine Aminotransferase 26 U/L (0-33); Albumin Level 4.8 g/dL (3.5-5.2); Alkaline Phosphatase 96 IU/L (35-105); Aspartate Amino Transferase 16 U/L (0-32); Blood Urea Nitrogen 9 mg/dL (6-20); Calcium 9.9 mg/dL (8.5-10.5); Carbon Dioxide 29 mmol/L (22-29); Chloride 98 mmol/L (98-107); Globulin 2.6 g/dL (1.3-4.6); Glomerular Filtration Rate 92.7 mL/min (90-130); Glucose 89 mg/dL (65-115); Osmolality Calculated 282 mOsm/kg (285-295); Sodium 137 mmol/L (136-145); Thyroid Stimulating Hormone 1.18 uIU/mL (0.27-4.20); Total Bilirubin 0.4 mg/dL (0.15-1.2); Total Protein 7.4 g/dL (6.6-8.7)
[2020-09-14 17:52] VITALS: BP 98/75; PULSE 67; O2SAT 100
== END 2020-09-14 17:53 | disposition home or self-care (01) ==
PROVIDERS: Emergency Provider Student in an Organized Health Care Education/Training Program
DX: I95.1 Orthostatic hypotension (principal); F17.210 Nicotine dependence, cigarettes, uncomplicated
CPT/HCPCS: 12345; 71045; 80053; 84443; 84484; 85025; 93005; 96360; 99283; J7030

== ENCOUNTER 2020-12-06 12:28 | Emergency (ER) | payer SELFPAY ==
[2020-12-06 12:55] VITALS: BP 127/82; PULSE 79; RESP 18; TEMP 36.7; O2SAT 99; BMI 32.1
[2020-12-06 13:11] VITALS: BP 151/85; PULSE 77; RESP 17; O2SAT 99
--- NOTE | 2020-12-06 13:29 | USCV_ITS ---
Mel Bianchi Age: 40 Gender: F : 1980 Exam Date: 12/06/2020 13:42 Ordering Phys: Pili Ash MD [facility] Technologist: Ileana Cannon Exam Location: [facility] [place] Indication: SWELLING HISTORY: FEET AND ANKLE SWELLING X 2 WEEKS PROCEDURES: Venous duplex imaging was performed in bilateral lower extremities. The following venous structures were evaluated: common femoral vein, profunda vein, proximal portion of the greater saphenous vein, superficial femoral vein, and the popliteal vein. In addition, the posterior tibial and peroneal trunk were evaluated. FINDINGS: Normal 2-D Doppler and augmentation and compressibility throughout the lower extremity venous structures. Additional imaging through the proximal calf veins also reveals no thrombus. Limited evaluation of the greater saphenous vein is patent with no thrombus. CONCLUSIONS No DVT bilateral lower extremities. Dr. Michelle Murray DO (Electronically Signed) Final Date: 06 December 2020 15:51 S
--- NOTE | 2020-12-06 14:24 | W.ED.EXTPRO ---
HPI - Extremity Problem General: Chief complaint: Extremity Problem,Nontraumatic Stated complaint: BODY IS SWELLING FROM BLE & UP, SHAKY Time Seen by Provider: 12/06/20 13:05 Source: patient Mode of arrival: ambulatory Limitations: no limitations History of Present Illness: HPI Narrative: Patient is a 40-year-old female who presents to the emergency department with complaints of bilateral foot and leg pain and swelling. She initially thought it was arthritis as the pain started in the foot and paid no attention until she notices leg swelling and cough pain. She is therefore here to be evaluated. She denies any trauma or falls. Denies any long distance travels. No prior history of DVT or pulmonary embolism. MD Complaint: extremity pain and extremity swelling Onset (ago): week(s) (2) Pain Consistency: constant Location: left, right and lower extremity Quality: aching Radiation: proximal Relieving factors: nothing Associated symptoms: Reports arthralgias; Deny chest pain, fever(s), myalgias, rash or short of breath Review of Systems General: Reports: 10 or more systems reviewed and unremarkable except in HPI and below Const: Denies: fever(s) Card: Denies: chest pain Skin/Breast: Denies: rash PFSH ED PFSH: Social History (Reviewed 12/06/20 @ 14:36 by Pili Ash [place] [facility] [place] Smoking and tobacco status: current every day smoker Female Reproductive History: Date of last menstrual period: 06/20/20 Physical Exam Const: COMMON NORMALS: no acute distress, average body habitus, patient oriented x3, no limitations, healthy appearing, alert and well nourished HENMT: COMMON NORMALS: normocephalic, atraumatic and moist oral mucous membranes HEAD & SCALP: normocephalic and atraumatic Neck/C-Spine: COMMON NORMALS: no meningeal signs and no JVD Resp: COMMON NORMALS: normal respiratory effort, No retractions, No use of accessory muscles, clear to auscultation bilaterally and percussion normal AUSCULTATION: clear to auscultation bilaterally PERCUSSION: percussion normal Cardio: COMMON NORMALS: no JVD, regular rate, regular rhythm, S1 normal heart sound present, S2 normal heart sound present, No gallops present (Cardio), No clicks present (Cardio), No murmurs present (Cardio), No rub (Cardio) and Peripheral pulses 2+ throughout RATE: regular rate RHYTHM: regular rhythm HEART SOUNDS: S1 normal heart sound present and S2 normal heart sound present PERIPHERAL PULSES: Peripheral pulses 2+ throughout GI: COMMON NORMALS: Normal to inspection, nondistended, normoactive bowel sounds present, Soft to palpation, non-tender, No hepatosplenomegaly present, no masses and no bruits PALPATION: Yes Soft to palpation and Yes No hepatosplenomegaly present Extremity: COMMON NORMALS: normal to inspection, full ROM, capillary refill normal and no pedal edema GENERAL: Yes calf tenderness (Left greater than right) OTHER: Tenderness at the MTP of both little toes. Neuro: COMMON NORMALS: patient oriented x3 SENSORIUM/ORIENTATION: Yes alert MENINGEAL SIGNS: Yes no meningeal signs Skin: COMMON NORMALS: no rashes or lesions noted, no wounds, turgor normal, no jaundice, no petechiae and no mottling GENERAL SKIN EXAM: no rashes or lesions noted and turgor normal Course Reevaluation(s): Reevaluation #1: Discussed her imaging findings with her. Negative for DVT. We will discharge her home with no new orders and she is advised to take dvni-lnc-aknnzoa analgesia. She voiced understanding and is in agreement with the plan. Time: 14:25 Vital Signs: Vital signs: Vital Signs Temperature 98.1 F 12/06/20 12:55 Pulse Rate 77 12/06/20 13:11 Respiratory Rate 16 12/06/20 14:40 Blood Pressure 119/55 12/06/20 14:40 Pulse Oximetry 99 12/06/20 13:11 MDM - Extremity (Nontraumatic) MDM Narrative: Medical decision making narrative: 40-year-old female patient who presents to the emergency department with bilateral foot and cough pain. Evaluation in the emergency department was unremarkable and she had negative venous Dopplers. She is discharged home with no new orders. Medical Records: Attestation: I reviewed the patient's medical records. Imaging Data^: US Vascular: Attestation: I personally reviewed and interpreted this imaging study as follows: Radiologist's impression: [address] [address] Ultrasound Report Signed Patient: Mel Bianchi #: [id number] : 1980Acct#:[id number] Age/Sex: 40 / FADM Date: 12/06/20 Loc: ERRoom/Bed: Attending Dr: Ordering Provider/Ordering MD: Pili Ash MD, KATI Date of Service: 12/06/20 Procedure(s): [place] [id number] Accession Number(s): [id number] Report Number: [id number] Mel Bianchi Age: 40 Gender: F : 1980 Exam Date: 12/06/2020 13:42 Ordering Phys: Pili Ash [place] [facility] [facility] [place] Technologist: Ileana Cannon Exam Location: [facility] [place] Indication: SWELLING HISTORY: FEET AND ANKLE SWELLING X 2 WEEKS PROCEDURES: Venous duplex imaging was performed in bilateral lower extremities. The following venous structures were evaluated: common femoral vein, profunda vein, proximal portion of the greater saphenous vein, superficial femoral vein, and the popliteal vein. In addition, the posterior tibial and peroneal trunk were evaluated. FINDINGS: Normal 2-D Doppler and augmentation and compressibility throughout the lower extremity venous structures. Additional imaging through the proximal calf veins also reveals no thrombus. Limited evaluation of the greater saphenous vein is patent with no thrombus. CONCLUSIONS No DVT bilateral lower extremities. Dr. Michelle Murray DO (Electronically Signed) Final Date: 06 December 2020 15:51 S Discharge Plan Discharge Patient Disposition: Home Clinical Impression: Acute leg pain Qualifiers: Laterality: unspecified laterality Qualified Code(s): M79.606 - Pain in leg, unspecified Condition: Stable Prescriptions: Continued albuterol sulfate 90 mcg/actuation Hfa Aerosol Inhaler 1 inh INHALATION QID PRN (Reason: Shortness Of Breath) RF: 0 ibuprofen [Advil] 200 mg Tablet 200 - 400 mg PO PRN PRN (Reason: Pain) RF: 0 Discharge Orders: Discharge ED (Routine); Ordered 12/06/20 Ordered By: Pili Ash Discharge Diet: Usual diet Discharge Activity: Increase activity as tolerated Patient Instructions: Arthralgia (ED) Activity Restrictions/Additional Instructions: Return for any new or worsening symptoms. Follow-up with your primary care provider within 3 days. Take Tylenol or ibuprofen as needed for pain. Coding Level of Care Code ED University Controller for Sandig Fwd Exam Comprehensive
[2020-12-06 14:40] VITALS: BP 119/55; RESP 16
== END 2020-12-06 14:41 | disposition home or self-care (01) ==
PROVIDERS: Emergency Provider Family Medicine
DX: M79.605 Pain in left leg (principal); M79.604 Pain in right leg; F17.210 Nicotine dependence, cigarettes, uncomplicated
CPT/HCPCS: 93970; 99282

== ENCOUNTER 2020-12-22 15:51 | Emergency (ER) | payer SELFPAY ==
[2020-12-22 16:14] VITALS: BP 136/91; PULSE 90; RESP 18; TEMP 36.8; O2SAT 98; BMI 32.1
--- NOTE | 2020-12-22 16:29 | XRR_ITS ---
PROCEDURE INFORMATION: Exam: XR Right Hand Exam date and time: 12/22/2020 4:33 PM Age: 40 years old Clinical indication: Pain; Finger(s) and hand; Right; Additional info: Right hand pain-2nd digit TECHNIQUE: Imaging protocol: XR Right hand. Views: 3 or more views. COMPARISON: No relevant prior studies available. FINDINGS: Bones/joints: Normal. Soft tissues: Mild soft tissue swelling of the index and middle fingers. No opaque foreign body is identified. XR/XR hand RT min 3V* [id number] IMPRESSION: No acute findings.
[2020-12-22 17:46] LABS: Bacteria Urine TRACE /hpf; Bilirubin Urine Neg (Negative); Blood Urine Neg (Negative); Glucose Urine UA Norm (Normal); Ketones Urine Negative (Negative); Leukocyte Esterase Urine Trace (Negative); Nitrate Urine Negative (Negative); Protein Urine Neg (Negative); RBC Urine RARE /hpf (0-2); Specific Gravity, Urine 1.005 (1.005-1.030); Urine Appearance Clear (CLEAR); Urine Color Yellow (Yellow); Urobilinogen Urine Norm (Negative); pH Urine 6 (5-7)
--- NOTE | 2020-12-22 17:55 | ED_ITS ---
HPI - Extremity Problem General: Chief complaint: Extremity Injury, Upper Stated complaint: R HAND INJURY Time Seen by Provider: 12/22/20 16:37 Source: patient Mode of arrival: ambulatory Limitations: no limitations History of Present Illness: HPI Narrative: 40-year-old female patient presents to the emergency department with complaints of right finger pain. She reports was trimming trees couple of days ago. States got her right finger/hand caught , pinched between branches. She is complaining of redness and swelling/pain to the right second MCP. She denies fever or chills. She also reports right- sided low back pain that is worse with movement MD Complaint: extremity pain, extremity swelling and joint pain Onset (ago): day(s) (1) Location: right and upper extremity Radiation: none Relieving factors: immobilization and rest Exacerbating factors: range of motion Associated symptoms: Deny chest pain, fever(s) or rash Review of Systems General: Reports: 10 or more systems reviewed and unremarkable except in HPI and below Const: Denies: fever(s), chills or diaphoresis Eyes: Denies: blurry vision or eye redness ENMT: Denies: throat pain, dental pain or disequilibrium Card: Denies: chest pain, palpitations or irregular heart rhythm Resp: Denies: dyspnea, productive cough, non-productive cough or wheezing GI: Denies: abdominal pain, nausea, vomiting, hematemesis, heartburn, diarrhea or constipation : Denies: difficulty voiding or dysuria Musc: Reports: back pain and extremity pain (rt finger); Denies: neck pain, joint pain or joint stiffness Skin/Breast: Denies: rash or pruritus Neuro: Denies: headache(s), weakness in extremities or behavioral changes Psych: Denies: anxiety, depression or change in appetite Rod/Lymph: Denies: easy bruising PFSH ED PFSH: Social History Smoking and tobacco status: current every day smoker Female Reproductive History: Date of last menstrual period: 06/20/20 Physical Exam Const: COMMON NORMALS: no acute distress, patient oriented x3, healthy appearing and alert GENERAL APPEARANCE: cooperative, comfortable and well hydrated HENMT: COMMON NORMALS: normocephalic, Normal external nose present and moist oral mucous membranes HEAD & SCALP: normocephalic NOSE: Normal external nose present Eye: COMMON NORMALS: Equal, round and reactive pupils present and EOMs intact bilaterally GENERAL EYE: appearance normal, both eyes and all related str uctures PUPIL: Yes Equal, round and reactive pupils present Neck/C-Spine: COMMON NORMALS: full ROM and no lymphadenopathy GENERAL: Yes normal visual inspection and Yes trachea midline CERVICAL SPINE: Yes cervical ROM normal Lymph: LYMPHATIC: no lymphadenopathy noted Chest: COMMONS NORMALS: normal inspection of the chest Resp: COMMON NORMALS: normal respiratory effort and clear to auscultation bilaterally AUSCULTATION: clear to auscultation bilaterally Cardio: COMMON NORMALS: regular rhythm, S1 normal heart sound present and S2 normal heart sound present RHYTHM: regular rhythm HEART SOUNDS: S1 normal heart sound present and S2 normal heart sound present GI: COMMON NORMALS: Soft to palpation and non-tender INSPECTION: Yes normal to inspection PALPATION: Yes Soft to palpation : COMMON NORMALS: Yes no CVA tenderness BLADDER/KIDNEY EXAM: Yes no CVA tenderness Back/Pelvis: COMMON NORMALS: no CVA tenderness, thoracic and lumbar spine normal to inspection and straight leg raise negative bilaterally THORACIC SPINE/UPPER BACK: Yes normal to inspection and Yes thoracic ROM normal LUMBAR SPINE/LOWER BACK: Yes normal to inspection, Yes lumbar ROM normal, Yes pain with ROM, No lumbar spinal tenderness, Yes paraspinal muscle tenderness Lumbar paraspinal muscle tenderness: right and No paraspinal muscle spasm PELVIS: Yes buttocks normal SACROILIAC JOINTS: Yes SI joints normal Extremity: COMMON NORMALS: normal to inspection, capillary refill normal, no clubbing, cyanosis or edema and no pedal edema GENERAL: Yes normal exam except as noted RIGHT UPPER EXTREMITY: Yes hand & digits (rt 2nd distal mcp with erythema, increased warmth, no wounds/scab) Right hand and digits: Yes palpation (pain to the 2nd distal MCP) and Yes neurovascular exam (distally intact) Neuro: COMMON NORMALS: patient oriented x3 and no focal motor deficits SENSORIUM/ORIENTATION: Yes alert GAIT: Yes Normal gait present MOTOR EXAM: 5/5 motor strength present throughout Psych: COMMON NORMALS: mental status grossly normal, Normal thought process present and cooperative ACTIVITY/MOTOR BEHAVIOR: Yes appropriate eye contact THOUGHT PROCESS: Normal thought process present Skin: COMMON NORMALS: no rashes or lesions noted, no wounds, turgor normal, no petechiae and no mottling GENERAL SKIN EXAM: no rashes or lesions noted, elasticity normal and turgor normal Course Vital Signs: Vital signs: Vital Signs Temperature 98.3 F 12/22/20 16:14 Pulse Rate 90 12/22/20 16:14 Respiratory Rate 18 12/22/20 16:14 Blood Pressure 136/91 12/22/20 16:14 Pulse Oximetry 98 12/22/20 16:14 MDM - Extremity (Nontraumatic) Lab Data: Labs: Lab Results 12/22/20 Range/Units 17:10 Urine Color Yellow (Yellow) Urine Appearance Clear (CLEAR) Urine pH 6 (5-7) Ur Specific Gravit y 1.005 (1.005-1.030) Urine Protein Neg (Negative) Urine Glucose (UA) Norm (Normal) Urine Ketones Negative (Negative) Urine Blood Neg (Negative) Urine Nitrate Negative (Negative) Urine Bilirubin Neg (Negative) Urine Urobilinogen Norm (Negative) mg/dL Ur Leukocyte Vani ase Trace H (Negative) Urine RBC Rare (0-2) /hpf Urine WBC None (0-5) /hpf Ur Squamous Epith Cells 5-10 H (0-5) /hpf Amorphous Sediment Not Reportable Urine Bacteria Trace (NONE) /hpf Imaging Data^: Other Xray: Radiologist's impression: [place] [address] XRay Report Signed Patient: Mel Bianchi Unit #: [id number] : 1980 Age/Sex: 40 / F ADM Date: 12/22/20 Loc: ER Room/Bed: Attending Dr: Ordering Provider/Ordering MD: Garfield Johnston Date of Service: 12/22/20 Procedure(s): XR hand RT min 3V* [id number] Accession Number(s): [id number] Report Number: [id number] PROCEDURE INFORMATION: Exam: XR Right Hand Exam date and time: 12/22/2020 4:33 PM Age: 40 years old Clinical indication: Pain; Finger(s) and hand; Right; Additional info: Right hand pain-2nd digit TECHNIQUE: Imaging protocol: XR Right hand. Views: 3 or more views. COMPARISON: No relevant prior studies available. FINDINGS: Bones/joints: Normal. Soft tissues: Mild soft tissue swelling of the index and middle fingers. No opaque foreign body is identified. XR/XR hand RT min 3V* [id number] IMPRESSION: No acute findings. Dictated By: Timmy Szymanski Signed By: Timmy Szymanski Signed Date/Time: 12/22/201709 DD/ 07 Discharge Plan Discharge Patient Disposition: Home Clinical Impression: Contusion of hand Qualifiers: Encounter type: initial encounter Laterality: right Qualified Code(s): S60.221A - Contusion of right hand, initial encounter Back strain Qualifiers: Encounter type: initial encounter Qualified Code(s): S39.012A - Strain of muscle, fascia and tendon of lower back, initial encounter Condition: Stable Prescriptions: New Arthritis Pain (diclofenac) 1 % gel 2 g topical QID Qty: 100 RF: 0 No Action albuterol sulfate 90 mcg/actuation Hfa Aerosol Inhaler 1 inh INHALATION QID PRN (Reason: Shortness Of Breath) RF: 0 ibuprofen [Advil] 200 mg Tablet 200 - 400 mg PO PRN PRN (Reason: Pain) RF: 0 Discharge Orders: Discharge ED (Routine); Ordered 12/22/20 Ordered By: Ara Silverman Discharge Diet: Usual diet Discharge Activity: Resume usual activity Patient Instructions: Low Back Strain (ED), Contusion in Adults (ED), Arthralgia (ED), Opioid Safety Activity Restrictions/Additional Instructions: Cool compresses to the affected area several times daily to help with pain and swelling Use Voltaren gel as needed for pain as directed Return to the emergency department if worsening symptoms or fever/leg weakness Follow-up with primary care tomorrow, social media content manager will be calling you for an appointment Coding Level of Care Code ED Community Organization Aide for g Fwd Exam Comprehensive
== END 2020-12-22 18:53 | disposition home or self-care (01) ==
PROVIDERS: Physician Assistant; Emergency Provider Nurse Practitioner Family
DX: S60.221A Contusion of right hand, initial encounter (principal); S39.012A Strain of muscle, fascia and tendon of lower back, initial encounter; F17.210 Nicotine dependence, cigarettes, uncomplicated; W23.0XXA Caught, crushed, jammed, or pinched between moving objects, initial encounter
CPT/HCPCS: 73130; 81001; 99283

== ENCOUNTER 2021-01-29 17:44 | Emergency (ER) | payer SELFPAY ==
[2021-01-29 18:34] VITALS: BP 151/92; PULSE 95; RESP 18; TEMP 36.6; O2SAT 98; BMI 33.0
[2021-01-29 19:33] LABS: Basophils # 0.1 10^3/uL (0.0-0.1); Basophils % 0.7 %; Eosinophils # 0.3 10^3/uL (0.0-0.8); Eosinophils % 3.3 %; Hematocrit 45.7 % (37.0-47.0); Hemoglobin 15.6 g/dL (11.5-15.3); Lymphocytes # 2.2 10^3/uL (0.8-4.8); Lymphocytes % 25.3 %; Mean Corpuscular HGB Conc 34.1 g/dL (30.0-36.0); Mean Corpuscular Hemoglobin 32.2 pg (28.0-34.0); Mean Corpuscular Volume 94.4 fL (81-99); Monocytes # 0.6 10^3/uL (0.2-0.9); Monocytes % 6.2 %; Neutrophils # 5.68 10^3/uL (1.8-7.7); Nucleated Red Blood Cells % 0 %; Platelet Count 229 10^3/cmm (130-400); Red Blood Count 4.84 10^6/uL (4.1-5.3); Red Cell Distribution Width 12.1 % (12.1-15.1); White Blood Count 8.9 10^3/uL (4.0-10.0)
[2021-01-29] MEDS: vancomycin 1,000 MG in sodium chloride 0.9% 250 ML 250 MG IV (19:33)
[2021-01-29] MEDS: doxycycline 100 mg Tablet PO (19:33)
[2021-01-29 19:34] VITALS: BP 139/80; PULSE 92; RESP 17; O2SAT 97
[2021-01-29 19:53] LABS: HCG, Serum Qual Negative (Negative)
[2021-01-29 19:58] LABS: Lactate (Lactic Acid level) 0.8 mmol/L (0.5-2.2)
[2021-01-29 20:26] LABS: Alanine Aminotransferase 36 U/L (0-33); Albumin Level 3.7 g/dL (3.5-5.2); Alkaline Phosphatase 108 IU/L (35-105); Blood Urea Nitrogen 7 mg/dL (6-20); C Reactive Protein 8.4 mg/L (0.0-4.9); Calcium 8.4 mg/dL (8.5-10.5); Carbon Dioxide 19 mmol/L (22-29); Chloride 102 mmol/L (98-107); Globulin 2.8 g/dL (1.3-4.6); Glomerular Filtration Rate 136.6 mL/min (90-130); Glucose 85 mg/dL (65-115); Osmolality Calculated 273 mOsm/kg (285-295); Sodium 133 mmol/L (136-145); Total Bilirubin 0.4 mg/dL (0.15-1.2); Total Protein 6.5 g/dL (6.6-8.7)
[2021-01-29 20:31] LABS: Erythrocyte Sedimentation Rate 13 mm/hr (0-15)
[2021-01-29] MEDS: diphenhydrAMINE 50 mg/mL SDV 1mL 25 MG IVP (20:35)
[2021-01-29 20:38] VITALS: BP 111/91; PULSE 74; RESP 18; O2SAT 95
[2021-01-29 20:50] LABS: Anion Gap 16.6 (5-19); Aspartate Amino Transferase 17 U/L (0-32); Potassium 4.6 mmol/L (3.5-5.1)
[2021-01-29 22:56] VITALS: BP 112/73; PULSE 78; RESP 18; O2SAT 95
--- NOTE | 2021-01-30 05:03 | W.ED.SKABFB ---
HPI - Skin/Abscess/Foreign Bdy General: Chief complaint: Skin/Abscess/Foreign Body Stated complaint: LEFT LEG SWELLING Time Seen by Provider: 01/29/21 19:00 History of Present Illness: HPI narrative: 40-year-old female with a history of redness, discomfort, and warmth to the left inner thigh. She notes that she pulled a tick off of this area a couple of days prior, and has noted this increasing rash since that time. No fever. No vomiting. MD complaint: rash Onset (ago): day(s) Tetanus up to date: yes Location: LLE Severity: moderate Quality: burning and aching Pain Consistency: constant Relieving factors: none Exacerbating factors: movement Context: witnessed insect bite and other Associated symptoms: Reports itching; Deny arthralgias, chills, cough, fever(s) or short of breath Treatments prior to arrival: OTC topical medication Review of Systems Const: Denies: fever(s) or chills Eyes: Denies: change in vision Card: Denies: chest pain Resp: Denies: dyspnea PFSH ED PFSH: Social History Smoking and tobacco status: current every day smoker Female Reproductive History: Date of last menstrual period: 06/20/20 Physical Exam Const: GENERAL APPEARANCE: well developed ORIENTATION/CONSCIOUSNESS: Yes oriented to person, Yes oriented to place and Yes oriented to time HENMT: COMMON NORMALS: normocephalic, external ears normal and Normal external nose present HEAD & SCALP: normocephalic FACE & SINUS: normal facial exam NOSE: Normal external nose present and No nasal discharge present EXTERNAL EAR: Yes external ears normal Eye: COMMON NORMALS: Equal, round and reactive pupils present, EOMs intact bilaterally and conjunctivae normal EYELID: eyelids normal CONJUNCTIVA: Yes conjunctivae normal PUPIL: Yes Equal, round and reactive pupils present Neck/C-Spine: GENERAL: No tracheal deviation Chest: COMMONS NORMALS: normal inspection of the chest CHEST: No tenderness Resp: COMMON NORMALS: clear to auscultation bilaterally EFFORT & INSPECTION: No tachypneic, No respiratory distress, No retractions, No uses accessory muscles and No tracheal deviation AUSCULTATION: clear to auscultation bilaterally, no rhonchi, no wheezes and lung sounds not diminished Cardio: COMMON NORMALS: regular rate and regular rhythm RATE: regular rate RHYTHM: regular rhythm HEART SOUNDS: no murmurs PERIPHERAL PULSES: radial pulses present GI: INSPECTION: No abdominal distension AUSCULTATION: No Hyperactive bowel sounds present and No Hypoactive bowel sounds present PALPATION: No Guarding due to palpation present (GI) and No Rigid due to palpation PERCUSSION: no dullness to percussion and no tympanic to percussion Neuro: SENSORIUM/ORIENTATION: Yes oriented to person, Yes oriented to place and Yes oriented to time Psych: COMMON NORMALS: mental status grossly normal Skin: NARRATIVE SKIN EXAM: Erythematous plaque with warmth and tenderness to the left inner thigh. There are puncture wounds consistent with a couple of insect bites. No streaking. There is inguinal lymphadenopathy. Course Vital Signs: Vital signs: Vital Signs Temperature 97.9 F 01/29/21 18:34 Pulse Rate 78 01/29/21 22:56 Respiratory Rate 18 01/29/21 22:56 Blood Pressure 112/73 01/29/21 22:56 Pulse Oximetry 95 01/29/21 22:56 MDM - Skin/Abscess/Foreign Bdy MDM Narrative: Medical decision making narrative: Left inner thigh cellulitis following insect bite. White blood cell count is 9. Inflammatory markers are not overly elevated. The patient does not appear septic. She did react to vancomycin infusion, by turning red. The medication was slowed, she was given Benadryl and Solu-Medrol with resolution. She will go home on doxycycline. Tick panel is pending. Lab Data: Labs: Lab Results 01/29/21 01/29/21 01/29/21 Range/Units 19:25 19:25 19:25 WBC 8.9 (4.0-10.0) 10^3/ uL RBC 4.84 (4.1-5.3) 10^6/u L Hgb 15.6 H (11.5-15.3) g/dL Hct 45.7 (37.0-47.0) % MCV 94.4 (81-99) fL MCH 32.2 (28.0-34.0) pg MCHC 34.1 (30.0-36.0) g/dL RDW 12.1 (12.1-15.1) % Plt Count 229 (130-400) 10^3/c mm MPV 11.0 H (7.4-10.4) fL Neut % (Auto) 64.0 % Lymph % (Auto) 25.3 % Casey % (Auto) 6.2 % Eos % (Auto) 3.3 % Baso % (Auto) 0.7 % Neut # (Auto) 5.68 (1.8-7.7) 10^3/u L Lymph # (Auto) 2.2 (0.8-4.8) 10^3/u L Casey # (Auto) 0.6 (0.2-0.9) 10^3/u L Eos # (Auto) 0.3 (0.0-0.8) 10^3/u L Baso # (Auto) 0.1 (0.0-0.1) 10^3/u L Nucleated RBC % (a uto) 0 % Nucleated RBCs # 0.0 /100WBC ESR 13 (0-15) mm/hr Sodium Cancelled Potassium Cancelled Chloride Cancelled Carbon Dioxide Cancelled Anion Gap Cancelled BUN Cancelled Creatinine Cancelled GFR Calculation Cancelled Glucose Cancelled Calculated Osmolal ity Cancelled Lactate (0.5-2.2) mmol/L Calcium Cancelled Total Bilirubin Cancelled AST Cancelled ALT Cancelled Alkaline Phosphata se Cancelled C-Reactive Protein Cancelled Total Protein Cancelled Albumin Cancelled Globulin Cancelled HCG, Qual (Negative) 01/29/21 01/29/21 01/29/21 Range/Units 19:25 19:25 20:05 WBC (4.0-10.0) 10^3/ uL RBC (4.1-5.3) 10^6/u L Hgb (11.5-15.3) g/dL Hct (37.0-47.0) % MCV (81-99) fL MCH (28.0-34.0) pg MCHC (30.0-36.0) g/dL RDW (12.1-15.1) % Plt Count (130-400) 10^3/c mm MPV (7.4-10.4) fL Neut % (Auto) % Lymph % (Auto) % Casey % (Auto) % Eos % (Auto) % Baso % (Auto) % Neut # (Auto) (1.8-7.7) 10^3/u L Lymph # (Auto) (0.8-4.8) 10^3/u L Casey # (Auto) (0.2-0.9) 10^3/u L Eos # (Auto) (0.0-0.8) 10^3/u L Baso # (Auto) (0.0-0.1) 10^3/u L Nucleated RBC % (a uto) % Nucleated RBCs # /100WBC ESR (0-15) mm/hr Sodium 133 L Potassium 4.6 Chloride 102 Carbon Dioxide 19 L Anion Gap 16.6 BUN 7 Creatinine 0.5 GFR Calculation 136.6 H Glucose 85 Calculated Osmolal ity 273 L Lactate 0.8 (0.5-2.2) mmol/L Calcium 8.4 L Total Bilirubin 0.4 AST 17 ALT 36 H Alkaline Phosphata se 108 H C-Reactive Protein 8.4 H Total Protein 6.5 L Albumin 3.7 Globulin 2.8 HCG, Qual Negative (Negative) Discharge Plan Discharge Patient Disposition: Home Clinical Impression: Cellulitis Qualifiers: Site of cellulitis: extremity Site of cellulitis of extremity: lower extremity Laterality: left Qualified Code(s): L03.116 - Cellulitis of left lower limb Condition: Stable Prescriptions: New doxycycline hyclate 100 mg capsule 100 mg PO BID 14 Days Qty: 28 RF: 0 No Action albuterol sulfate 90 mcg/actuation Hfa Aerosol Inhaler 1 inh INHALATION QID PRN (Reason: Shortness Of Breath) RF: 0 ibuprofen [Advil] 200 mg Tablet 200 - 400 mg PO PRN PRN (Reason: Pain) RF: 0 Arthritis Pain (diclofenac) 1 % gel 2 g topical QID Qty: 100 RF: 0 Discharge Orders: Discharge ED (Routine); Ordered 01/29/21 Ordered By: Vaibhav Vee Discharge Diet: Usual diet Discharge Activity: Increase activity as tolerated Patient Instructions: Cellulitis (ED) Activity Restrictions/Additional Instructions: Return for increasing redness, pain, swelling, streaking despite at least 2-3 more doses of antibiotics, fever greater than 100, vomiting liquids or medications, any other concerning symptoms. Take agwi-jih-ozayvda antihistamines such as Benadryl or Claritin for the itch and redness. Do not use Benadryl cream. Stand Alone Forms: Work/School Release Coding Level of Care Code ED Bricklayer Tender for Chg Fwd
== END 2021-01-29 23:22 | disposition home or self-care (01) ==
PROVIDERS: Emergency Provider Emergency Medicine
DX: L03.116 Cellulitis of left lower limb (principal); F17.210 Nicotine dependence, cigarettes, uncomplicated
CPT/HCPCS: 36415; 80053; 83605; 84703; 85025; 85651; 86140; 96365; 96375; 99283; J1200; J2930; J3370; J7050

== ENCOUNTER 2021-10-11 10:08 | Emergency (ER) | payer OTHER, SELFPAY ==
[2021-10-11 10:47] VITALS: BP 111/76; PULSE 86; RESP 18; TEMP 36.7; O2SAT 99; BMI 34.0
[2021-10-11 11:08] VITALS: BP 157/89; PULSE 86; RESP 16; O2SAT 97
--- NOTE | 2021-10-11 11:09 | CT_ITS ---
WS: [id number] CT ABDOMEN PELVIS TECHNIQUE: Noncontrast CT of the abdomen and pelvis with coronal and sagittal reformatted images. CLINICAL INFORMATION: RLQ pain, n/v/d COMPARISON: None. DLP: 1257.[address] scans at [facility] use at least one of these dose optimization techniques: automated e xposure control; mA and/or kV adjustment per patient size (includes targeted exams where dose is matc hed to clinical indication); or iterative reconstruction. FINDINGS: Normal noncontrast liver. Prior cholecystectomy. Mild hepatomegaly. Mild splenomegaly measuring 13.0 cm. Normal GE junction. Lung bases are well aerated. Adrenal glands are normal. No hydronephrosis in either kidney. No obstructing renal or ureteral calcu li. Pelvic phleboliths. Noncontrast pancreas appears normal. Normal caliber abdominal aorta. Enlarged lymph nodes in the cent ral mesentery with a small amount of induration nonspecific but likely reactive and can be seen with mesenteric adenitis. Tiny fat-containing umbilical hernia. Normal sigmoid colon. No evidence of high-grade small or large bowel obstruction. Normal appendix in the RIGHT lower quadrant. Appendix is air-filled. No evidence of acute appendicitis. No periaortic or retroperitoneal lymphadenopathy. No pelvic lymphadenopathy. No inguinal lymphadenopa thy. Disc space narrowing L5-S1 with vacuum disc phenomenon. CT/CT abdomen pelvis wo con [id number] IMPRESSION: 1. Normal air-filled appendix in the RIGHT lower quadrant. No evidence of acut e appendicitis. 2. 1.5 x 1.9 RIGHT ovarian cyst. 3. No free fluid in the pelvis. 4. No evidence of high-grade small or large bowel obstruction. 5. No hydronephrosis in either kidney. 6. Slight induration in the central mesentery with a few prominent lymph nodes likely reactive and can be seen with mesenteric adenitis. 7. No other significant findings.
--- NOTE | 2021-10-11 11:12 | ED_ITS ---
HPI - Abdominal Pain General: Chief Complaint: Abdominal Pain Stated Complaint: Abd Pains in Right side Time Seen by Provider: 10/11/21 10:58 History of Present Illness: Patient is a 41-year-old female comes to the ED with abdominal pain. Symptoms started yesterday evening. Denies any food poisoning or pain starting after she ate. Sudden onset of pain in her right lower quadrant of the abdomen. She has also had diarrhea, nausea and vomiting as well. She says in the last 24 hours she is had approximately eight episodes of diarrhea. Her nausea and vomiting started this morning when she woke up. She had multiple episodes of emesis this morning as well. Denies any worsening or relieving factors. Denies any fever, chills, blood in stool, dysuria or hematuria. Patient says that her son is having similar symptoms as well. Associated Symptoms: Reports diarrhea, nausea and vomiting; Denies chills, constipation, dysuria, fever(s), hematochezia and hematuria Related Data: Date of Last Menstrual Period: 06/20/20 Review of Systems Const: Denies: fever(s), chills or fatigue Eyes: Denies: change in vision or eye discomfort ENMT: Denies: throat pain, odynophagia, nasal discharge or nasal congestion Card: Denies: chest pain, palpitations, edema, swelling of feet/ankles, dyspnea on exertion or orthopnea Resp: Denies: dyspnea, productive cough or non-productive cough GI: Reports: abdominal pain, nausea, vomiting and diarrhea; Denies: constipation or hematochezia : Denies: flank pain, dysuria or hematuria Musc: Denies: neck pain, back pain or extremity swelling Skin/Breast: Denies: rash or new lesions Neuro: Denies: headache(s), numbness in extremities or weakness in extremities PFSH ED PFSH: Medical History No pertinent family history Surgical History Hx of cholecystectomy Social History Smoking and tobacco status: current every day smoker Female Reproductive History: Date of last menstrual period: 06/20/20 Physical Exam Const: COMMON NORMALS: no acute distress, patient oriented x3 and alert GENERAL APPEARANCE: cooperative and comfortable HENMT: COMMON NORMALS: normocephalic HEAD & SCALP: normocephalic MOUTH: Normal oral and palatal mucosa present THROAT: posterior oropharynx normal and uvula midline Neck/C-Spine: COMMON NORMALS: supple GENERAL: Yes normal visual inspection Resp: COMMON NORMALS: normal respiratory effort, No retractions, No use of accessory muscles and clear to auscultation bilaterally AUSCULTATION: clear to auscultation bilaterally Cardio: COMMON NORMALS: regular rate, regular rhythm, S1 normal heart sound present, S2 normal heart sound present, No gallops present (Cardio), No clicks present (Cardio), No murmurs present (Cardio) and Peripheral pulses 2+ throughout RATE: regular rate RHYTHM: regular rhythm HEART SOUNDS: S1 normal heart sound present and S2 normal heart sound present PERIPHERAL PULSES: Peripheral pulses 2+ throughout GI: COMMON NORMALS: Normal to inspection, nondistended, normoactive bowel sounds present, Soft to palpation and no masses PALPATION: Yes Soft to palpation and Yes Tenderness to palpation present (GI) Details: RLQ : COMMON NORMALS: Yes no CVA tenderness BLADDER/KIDNEY EXAM: Yes no CVA tenderness Back/Pelvis: COMMON NORMALS: no CVA tenderness Extremity: COMMON NORMALS: normal to inspection Neuro: COMMON NORMALS: patient oriented x3 SENSORIUM/ORIENTATION: Yes alert GAIT: Yes Normal gait present Skin: GENERAL SKIN EXAM: dry skin Course Vital Signs: Vital signs: Vital Signs Temperature 98.1 F 10/11/21 10:47 Pulse Rate 75 10/11/21 14:23 Respiratory Rate 16 10/11/21 14:23 Blood Pressure 113/75 10/11/21 14:23 Pulse Oximetry 96 10/11/21 14:23 MDM - Abdominal Pain Medical Decision Making Patient is a 41-year-old female comes to the ED with abdominal pain, nausea, vomiting and diarrhea. Symptoms started yesterday. Vitals are stable and patient appears nontoxic and in no acute distress or pain. She has some right lower quadrant tenderness upon palpation but the rest of exam is benign. All labs were unremarkable. CT of abdomen pelvis showed a right ovarian cyst and mesenteric adenitis. Patient was was given Zofran here in the ED and she was able to keep fluids down. Patient diagnosed with viral gastroenteritis mesenteric adenitis and discharged home with a prescription for Zofran and dicyclomine. She was told to follow-up with her PCP in 7 to 10 days reevaluation. Return to ED precautions given. Patient understood and agree with plan. Lab Data I reviewed the patient's lab results. : 10/11/21 11:55 10/11/21 11:55 Labs/Radiology: Radiology Impressions Abdomen/Pelvis CT 10/11/21 11:09 IMPRESSION: 1. Normal air-filled appendix in the RIGHT lower quadrant. No evidence of acute appendicitis. 2. 1.5 x 1.9 RIGHT ovarian cyst. 3. No free fluid in the pelvis. 4. No evidence of high-grade small or large bowel obstruction. 5. No hydronephrosis in either kidney. 6. Slight induration in the central mesentery with a few prominent lymph nodes likely reactive and can be seen with mesenteric adenitis. 7. No other significant findings. Laboratory Results WBC 8.0 10^3/uL (4.0-10.0) 10/11/21 11:55 RBC 4.62 10^6/uL (4.1-5.3) 10/11/21 11:55 Hgb 14.4 g/dL (11.5-15.3) 10/11/21 11:55 Hct 43.7 % (37.0-47.0) 10/11/21 11:55 MCV 94.6 fl (81-99) 10/11/21 11:55 MCH 31.2 pg (28.0-34.0) 10/11/21 11:55 MCHC 33.0 g/dL (30.0-36.0) 10/11/21 11:55 RDW 12.3 % (12.1-15.1) 10/11/21 11:55 Plt Count 239 10^3/cmm (130-400) 10/11/21 11:55 MPV 11.1 fL (7.4-10.4) H 10/11/21 11:55 Neut % (Auto) 72.1 % 10/11/21 11:55 Lymph % (Auto) 16.9 % 10/11/21 11:55 [place] % (Auto) 8.3 % 10/11/21 11:55 Eos % (Auto) 1.8 % 10/11/21 11:55 Baso % (Auto) 0.4 % 10/11/21 11:55 Neut # (Auto) 5.77 10^3/uL (1.8-7.7) 10/11/21 11:55 Lymph # (Auto) 1.4 10^3/uL (0.8-4.8) 10/11/21 11:55 [place] # (Auto) 0.7 10^3/uL (0.2-0.9) 10/11/21 11:55 Eos # (Auto) 0.1 10^3/uL (0.0-0.8) 10/11/21 11:55 Baso # (Auto) 0.0 10^3/uL (0.0-0.1) 10/11/21 11:55 Nucleated RBC % (auto) 0 % 10/11/21 11:55 Nucleated RBCs # 0.0 /100WBC 10/11/21 11:55 Sodium 137 mmol/L (136-145) 10/11/21 11:55 Potassium 3.9 mmol/L (3.5-5.1) 10/11/21 11:55 Chloride 104 mmol/L (98-107) 10/11/21 11:55 Carbon Dioxide 22 mmol/L (22-29) 10/11/21 11:55 Anion Gap 14.9 (5-19) 10/11/21 11:55 BUN 11 mg/dL (6-20) 10/11/21 11:55 Creatinine 0.6 mg/dL (0.5-0.9) 10/11/21 11:55 GFR Calculation 110.2 mL/min (90-130) 10/11/21 11:55 Glucose 101 mg/dL (65-115) 10/11/21 11:55 Calculated Osmolality 284 mOsm/kg (285-295) L 10/11/21 11:55 Calcium 9.0 mg/dL (8.5-10.5) 10/11/21 11:55 Total Bilirubin 0.4 mg/dL (0.15-1.2) 10/11/21 11:55 AST 15 U/L (0-32) 10/11/21 11:55 ALT 31 U/L (0-33) 10/11/21 11:55 Alkaline Phosphatase 109 IU/L (35-105) H 10/11/21 11:55 Total Protein 7.0 g/dL (6.6-8.7) 10/11/21 11:55 Albumin 4.2 g/dL (3.5-5.2) 10/11/21 11:55 Globulin 2.8 g/dL (1.3-4.6) 10/11/21 11:55 Lipase 28 U/L (13-60) 10/11/21 11:55 HCG, Qual Negative (Negative) 10/11/21 11:55 Discharge Plan Discharge Patient Disposition: Home Clinical Impression: Viral gastroenteritis, Mesenteric adenitis Condition: Stable Prescriptions: New ondansetron 4 mg tablet,disintegrating 4 mg PO Q8H PRN (Reason: nausea and vomiting) Qty: 20 0RF dicyclomine 20 mg tablet 20 mg PO QID PRN (Reason: diarrhea and abdominal cramping) Qty: 30 0RF No Action albuterol sulfate 90 mcg/actuation Hfa Aerosol Inhaler 1 inh INHALATION QID PRN (Reason: Shortness Of Breath) 0RF ibuprofen [Advil] 200 mg Tablet 200 - 400 mg PO PRN PRN (Reason: Pain) 0RF Arthritis Pain (diclofenac) 1 % gel 2 g topical QID Qty: 100 0RF Rx Instructions: apply to single elbow, wrist or hand; for hand includes palm/fingers/back of hand Discharge Orders: Discharge ED (Routine); Ordered 10/11/21 Ordered By: Garfield Johnston Discharge Diet: Advance as tolerated and Clear Liquid Discharge Activity: Increase activity as tolerated Patient Instructions: Gastroenteritis (ED), Mesenteric Adenitis (ED) Activity Restrictions/Additional Instructions: Follow-up with medical provider as directed in 5 to 7 days reevaluation. Make sure to drink plenty of fluids and stay hydrated.Take medications as prescribed. Return to the ER or your medical provider if condition worsens. Please read and understand discharge instructions. Thank you for choosing [facility] for your healthcare needs today. Please realize this is an emergency room and that we are providing you with a medical screening exam and this may not be complete and all inclusive of all the testing and or work up that you may need to determine your ailment or severity of your illness. It is very important that you follow up as instructed or that you return to the Emergency Department should you have concerns or if your condition changes or worsens in any way. Coding Level of Care Code ED Electric Power Line Repairer for Chg Fwd Exam Comprehensive
[2021-10-11 12:13] LABS: Basophils % 0.4 %; Eosinophils # 0.1 10^3/uL (0.0-0.8); Eosinophils % 1.8 %; Hematocrit 43.7 % (37.0-47.0); Hemoglobin 14.4 g/dL (11.5-15.3); Lymphocytes # 1.4 10^3/uL (0.8-4.8); Lymphocytes % 16.9 %; Mean Corpuscular Hemoglobin 31.2 pg (28.0-34.0); Mean Corpuscular Volume 94.6 fl (81-99); Mean Platelet Volume 11.1 fL (7.4-10.4); Monocytes # 0.7 10^3/uL (0.2-0.9); Monocytes % 8.3 %; Neutrophils # 5.77 10^3/uL (1.8-7.7); Neutrophils % 72.1 %; Nucleated Red Blood Cells % 0 %; Platelet Count 239 10^3/cmm (130-400); Red Blood Count 4.62 10^6/uL (4.1-5.3); Red Cell Distribution Width 12.3 % (12.1-15.1)
[2021-10-11 12:29] LABS: HCG, Serum Qual Negative (Negative)
[2021-10-11 12:32] VITALS: BP 124/88; PULSE 77; RESP 18; O2SAT 96
[2021-10-11 12:33] LABS: Alanine Aminotransferase 31 U/L (0-33); Albumin Level 4.2 g/dL (3.5-5.2); Alkaline Phosphatase 109 IU/L (35-105); Anion Gap 14.9 (5-19); Aspartate Amino Transferase 15 U/L (0-32); Blood Urea Nitrogen 11 mg/dL (6-20); Carbon Dioxide 22 mmol/L (22-29); Chloride 104 mmol/L (98-107); Globulin 2.8 g/dL (1.3-4.6); Glomerular Filtration Rate 110.2 mL/min (90-130); Glucose 101 mg/dL (65-115); Lipase 28 U/L (13-60); Osmolality Calculated 284 mOsm/kg (285-295); Potassium 3.9 mmol/L (3.5-5.1); Sodium 137 mmol/L (136-145); Total Bilirubin 0.4 mg/dL (0.15-1.2)
[2021-10-11] MEDS: ondansetron 4 MG Tablet PO (12:54)
[2021-10-11 13:41] VITALS: BP 116/69; PULSE 82; RESP 18; O2SAT 98
[2021-10-11 14:23] VITALS: BP 113/75; PULSE 75; RESP 16; O2SAT 96
== END 2021-10-11 14:24 | disposition home or self-care (01) ==
PROVIDERS: Emergency Provider Physician Assistant
DX: A08.4 Viral intestinal infection, unspecified (principal); I88.0 Nonspecific mesenteric lymphadenitis; F17.210 Nicotine dependence, cigarettes, uncomplicated
CPT/HCPCS: 36415; 74176; 80053; 83690; 84703; 85025; 96374; 96375; 99284; Q0162

== ENCOUNTER 2022-02-11 15:13 | Emergency (ER) | payer OTHER, SELFPAY ==
[2022-02-11 15:34] VITALS: BP 144/84; PULSE 100; RESP 18; TEMP 37.2; O2SAT 98; BMI 34.0
--- NOTE | 2022-02-11 15:47 | XRR_ITS ---
PROCEDURE INFORMATION: Exam: XR Chest Exam date and time: 02/11/2022 4:10 PM Age: 41 years old Clinical indication: Cough and shortness of breath; Additional info: SOB TECHNIQUE: Imaging protocol: Radiologic exam of the chest. Views: 1 view. COMPARISON: CR XR chest 1V portable [id number] 09/14/2020 2:26 PM FINDINGS: Lungs: Unremarkable. No consolidation. Pleural spaces: Unremarkable. No pleural effusion. No pneumothorax. Heart/Mediastinum: Unremarkable. No cardiomegaly. Bones/joints: Unremarkable. XR/XR chest 1V portable [id number] IMPRESSION: No acute findings.
--- NOTE | 2022-02-11 15:48 | ECG_ITS ---
[facility] Test Date: 2022-02-11 Pat Name: Mel Bianchi Department: Room: Gender: Female Audograph Operator: : 1980 Requested By: Erasto Moser Order Number: [id number] Antonette MD: Arabella Lund M.D. Measurements Intervals [place] Rate: 93 P: 41 [place]: 142 QRS: 48 QRSD: 85 T: 23 QT: 351 QTc: 437 Interpretive Statements SINUS RHYTHM Compared to ECG 09/14/2020 14:49:58 Sinus bradycardia no longer present Electronically Signed On 02-12-2022 21:26:07 CDT by Arabella Lund M.D. [id number]
--- NOTE | 2022-02-11 15:49 | W.ED.SOB ---
HPI - SOB/Dyspnea General: Chief Complaint: Shortness of Breath/Dyspnea Stated Complaint: SOB Time Seen by Provider: 02/11/22 15:44 History of Present Illness: HPI Narrative: 41-year-old with history of COPD presents shortness of breath. States it has been ongoing for a week. States that she has had increased exposure to dust. Denies any focal pain. Denies any fevers or chills. Denies lower extremity pain or swelling. Patient is PERC negative. Review of Systems Narrative: - CONSTITUTIONAL: Denies weight loss, fever and chills. - HEENT: Denies changes in vision and hearing. - RESPIRATORY: As above - CV: Denies palpitations and CP. - GI: Denies abdominal pain, nausea, vomiting and diarrhea. - : Denies dysuria and urinary frequency. - MSK: Denies myalgia and joint pain. - SKIN: Denies rash and pruritus. - NEUROLOGICAL: Denies headache, weakness, numbness and syncope. - PSYCHIATRIC: Denies suicidal ideation [facility] ED PFSH: Medical History No pertinent family history Surgical History Hx of cholecystectomy Social History Smoking and tobacco status: current every day smoker Female Reproductive History: Date of last menstrual period: 01/07/22 Physical Exam Narrative: EXAM NARRATIVE: - GENERAL: Alert and oriented x 3. No acute distress. Well-nourished. - EYES: EOMI. Anicteric. - HENT: Atraumatic, no C-spine tenderness. Moist mucous membranes. No scleral icterus. No cervical lymphadenopathy. - LUNGS: Bilateral wheezing. - CARDIOVASCULAR: Regular rate and rhythm. No murmur. No JVD. - ABDOMEN: Soft, non-tender and non-distended. Negative CVA tenderness bilaterally, no rebound or guarding, negative Vergara sign. No palpable masses. - EXTREMITIES: No edema. Non-tender. - SKIN: No rashes or lesions. Warm. - NEUROLOGIC: No meningismus or focal neurological deficits. CN II-XII grossly intact. - PSYCHIATRIC: Cooperative. Appropriate mood and affect. Course Vital Signs: Vital signs: Vital Signs Temperature 99.0 F 02/11/22 15:34 Pulse Rate 91 02/11/22 16:07 Respiratory Rate 20 H 02/11/22 16:01 Blood Pressure 144/84 02/11/22 15:34 Pulse Oximetry 97 02/11/22 16:01 MDM - SOB/Dyspnea Medical Decision Making 41-year-old with history of COPD presents shortness of breath. She has wheezing on exam consistent with COPD exacerbation. Improved albuterol and steroids. Prescription for prednisone provided. X-ray does not reveal pneumothorax or consolidation. EKG and troponin not revealing sign of acute ischemia or acute abnormality. Remainder of lab work is unremarkable. She is saturating well. She is PERC negative. Patient refused COVID and influenza swabs. She has capacity to make this decision. At this time I believe patient would be safe for discharge and outpatient follow-up. Return precautions provided. Plan was reviewed with the patient who expressed understanding. Questions answered. Patient will follow up with PCP. Patient discharged in stable condition. Lab Data : 02/11/22 16:07 02/11/22 16:07 Labs/Radiology: Radiology Impressions Chest X-Ray 02/11/22 15:47 IMPRESSION: No acute findings. Laboratory Results WBC 9.0 10^3/uL (4.0-10.0) 02/11/22 16:07 RBC 3.85 10^6/uL (4.1-5.3) L 02/11/22 16:07 Hgb 12.2 g/dL (11.5-15.3) 02/11/22 16:07 Hct 34.3 % (37.0-47.0) L 02/11/22 16:07 MCV 89.1 fl (81-99) 02/11/22 16:07 MCH 31.7 pg (28.0-34.0) 02/11/22 16:07 MCHC 35.6 g/dL (30.0-36.0) 02/11/22 16:07 RDW 12.0 % (12.1-15.1) L 02/11/22 16:07 Plt Count 293 10^3/cmm (130-400) 02/11/22 16:07 MPV 10.3 fL (7.4-10.4) 02/11/22 16:07 Neut % (Auto) 67.3 % 02/11/22 16:07 Lymph % (Auto) 23.1 % 02/11/22 16:07 [place] % (Auto) 6.5 % 02/11/22 16:07 Eos % (Auto) 2.1 % 02/11/22 16:07 Baso % (Auto) 0.6 % 02/11/22 16:07 Neut # (Auto) 6.05 10^3/uL (1.8-7.7) 02/11/22 16:07 Lymph # (Auto) 2.1 10^3/uL (0.8-4.8) 02/11/22 16:07 [place] # (Auto) 0.6 10^3/uL (0.2-0.9) 02/11/22 16:07 Eos # (Auto) 0.2 10^3/uL (0.0-0.8) 02/11/22 16:07 Baso # (Auto) 0.1 10^3/uL (0.0-0.1) 02/11/22 16:07 Nucleated RBC % (auto) 0 % 02/11/22 16:07 Nucleated RBCs # 0.0 /100WBC 02/11/22 16:07 Sodium 137 mmol/L (136-145) 02/11/22 16:07 Potassium 4.1 mmol/L (3.5-5.1) 02/11/22 16:07 Chloride 103 mmol/L (98-107) 02/11/22 16:07 Carbon Dioxide 23 mmol/L (22-29) 02/11/22 16:07 Anion Gap 15.1 (5-19) 02/11/22 16:07 BUN 7 mg/dL (6-20) 02/11/22 16:07 Creatinine 0.6 mg/dL (0.5-0.9) 02/11/22 16:07 GFR Calculation 110.2 mL/min (90-130) 02/11/22 16:07 Glucose 82 mg/dL (65-115) 02/11/22 16:07 Calculated Osmolality 281 mOsm/kg (285-295) L 02/11/22 16:07 Calcium 8.9 mg/dL (8.5-10.5) 02/11/22 16:07 Total Bilirubin 0.3 mg/dL (0.15-1.2) 02/11/22 16:07 AST 13 U/L (0-32) 02/11/22 16:07 ALT 22 U/L (0-33) 02/11/22 16:07 Alkaline Phosphatase 102 IU/L (35-105) 02/11/22 16:07 Troponin T Baseline 6 ng/L (0-10) 02/11/22 16:07 NT-Pro-B Natriuret Pep 111 pg/mL (0-125) 02/11/22 16:07 Total Protein 6.4 g/dL (6.6-8.7) L 02/11/22 16:07 Albumin 4.2 g/dL (3.5-5.2) 02/11/22 16:07 Globulin 2.2 g/dL (1.3-4.6) 02/11/22 16:07 EKG Data EKG 1: Other EKG Comments: Sinus rhythm, rate of 93, no sign of acute ischemia or other acute abnormality. Discharge Plan Discharge Condition: Stable Prescriptions: No Action albuterol sulfate 90 mcg/actuation Hfa Aerosol Inhaler 1 inh INHALATION QID PRN (Reason: Shortness Of Breath) 0RF ibuprofen [Advil] 200 mg Tablet 200 - 400 mg PO PRN PRN (Reason: Pain) 0RF Arthritis Pain (diclofenac) 1 % gel 2 g topical QID Qty: 100 0RF Rx Instructions: apply to single elbow, wrist or hand; for hand includes palm/fingers/back of hand ondansetron 4 mg tablet,disintegrating 4 mg PO Q8H PRN (Reason: nausea and vomiting) Qty: 20 0RF dicyclomine 20 mg tablet 20 mg PO QID PRN (Reason: diarrhea and abdominal cramping) Qty: 30 0RF Coding Level of Care Code ED Biostatistics Professor for Chg Fwd
[2022-02-11] MEDS: ipratropium-albuterol 3 mL Neb INHALATION (16:00)
[2022-02-11 16:01] VITALS: PULSE 90; RESP 20; O2SAT 97
[2022-02-11 16:07] VITALS: PULSE 91
--- NOTE | 2022-02-11 16:13 | PC.NURSE ---
EKG done at 1610 and shown to ER doctor.
[2022-02-11 16:14] LABS: Basophils # 0.1 10^3/uL (0.0-0.1); Basophils % 0.6 %; Eosinophils # 0.2 10^3/uL (0.0-0.8); Eosinophils % 2.1 %; Hematocrit 34.3 % (37.0-47.0); Hemoglobin 12.2 g/dL (11.5-15.3); Lymphocytes # 2.1 10^3/uL (0.8-4.8); Lymphocytes % 23.1 %; Mean Corpuscular HGB Conc 35.6 g/dL (30.0-36.0); Mean Corpuscular Hemoglobin 31.7 pg (28.0-34.0); Mean Corpuscular Volume 89.1 fl (81-99); Mean Platelet Volume 10.3 fL (7.4-10.4); Monocytes # 0.6 10^3/uL (0.2-0.9); Monocytes % 6.5 %; Neutrophils # 6.05 10^3/uL (1.8-7.7); Neutrophils % 67.3 %; Nucleated Red Blood Cells % 0 %; Platelet Count 293 10^3/cmm (130-400); Red Blood Count 3.85 10^6/uL (4.1-5.3)
[2022-02-11 16:36] LABS: Troponin(5th) Baseline 6 ng/L (0-10)
[2022-02-11 16:46] LABS: Alanine Aminotransferase 22 U/L (0-33); Albumin Level 4.2 g/dL (3.5-5.2); Alkaline Phosphatase 102 IU/L (35-105); Anion Gap 15.1 (5-19); Aspartate Amino Transferase 13 U/L (0-32); Blood Urea Nitrogen 7 mg/dL (6-20); Calcium 8.9 mg/dL (8.5-10.5); Carbon Dioxide 23 mmol/L (22-29); Chloride 103 mmol/L (98-107); Globulin 2.2 g/dL (1.3-4.6); Glomerular Filtration Rate 110.2 mL/min (90-130); Glucose 82 mg/dL (65-115); NT Pro B Type Natriuretic Pept 111 pg/mL (0-125); Osmolality Calculated 281 mOsm/kg (285-295); Potassium 4.1 mmol/L (3.5-5.1); Sodium 137 mmol/L (136-145); Total Bilirubin 0.3 mg/dL (0.15-1.2); Total Protein 6.4 g/dL (6.6-8.7)
[2022-02-11 17:14] VITALS: BP 136/82; PULSE 82; RESP 18; O2SAT 96
== END 2022-02-11 17:22 | disposition home or self-care (01) ==
PROVIDERS: Emergency Provider Emergency Medicine
DX: R06.02 Shortness of breath (principal); J44.9 Chronic obstructive pulmonary disease, unspecified
CPT/HCPCS: 71045; 80053; 83880; 84484; 85025; 93005; 94640; 96374; 99285; J2930

== ENCOUNTER 2023-10-15 11:31 | Emergency (ER) | payer OTHER, SELFPAY ==
--- NOTE | 2023-10-15 11:35 | XRR_ITS ---
PROCEDURE INFORMATION: Exam: XR Chest Exam date and time: 10/15/2023 12:07 PM Age: 43 years old Clinical indication: Pain; Angina pectoris; Additional info: Cxp TECHNIQUE: Imaging protocol: Radiologic exam of the chest. Views: 1 view. COMPARISON: CR XR chest 1V portable [id number] 02/11/2022 4:10 PM FINDINGS: Lungs: Unremarkable. No consolidation. Pleural spaces: Unremarkable. No pleural effusion. No pneumothorax. Heart/Mediastinum: Cardiac silhouette appears borderline enlarged on this portable chest. Bones/joints: Unremarkable. XR/XR chest 1V portable [id number] IMPRESSION: Borderline cardiomegaly otherwise negative chest.
--- NOTE | 2023-10-15 11:40 | ECG_ITS ---
[facility] Test Date: 2023-10-15 Pat Name: Mel Bianchi Department: Room: Gender: Female Legal Project Manager: : 1980 Requested By: Barney Francisco Order Number: [id number] Antonette MD: Alexey Mckeon M.D. Measurements Intervals [place] Rate: 80 P: 33 [place]: 144 QRS: 35 QRSD: 80 T: 28 QT: 339 QTc: 391 Interpretive Statements SINUS RHYTHM MINIMAL ST DEPRESSION [0.025+ mV ST DEPRESSION] Compared to ECG 02/11/2022 16:11:16 ST (T wave) deviation now present Electronically Signed On 10-15-2023 11:50:48 SHAKE FEEDER by Alexey Mckeon M.D. [id number]
[2023-10-15 11:47] VITALS: BP 135/84; PULSE 82; RESP 16; TEMP 36.8; O2SAT 99; BMI 36.6
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
[2023-10-15 12:16] LABS: Basophils # 0.1 10^3/uL (0.0-0.1); Basophils % 0.7 %; Eosinophils # 0.2 10^3/uL (0.0-0.8); Eosinophils % 2.4 %; Hematocrit 45.5 % (36-47); Lymphocytes # 1.7 10^3/uL (0.8-4.8); Mean Corpuscular HGB Conc 33.4 g/dL (30-55); Mean Corpuscular Hemoglobin 31.3 pg (27-33); Mean Corpuscular Volume 93.6 fl (85-98); Monocytes # 0.4 10^3/uL (0.2-0.9); Monocytes % 4.6 %; Neutrophils # 6.67 10^3/uL (1.8-7.7); Neutrophils % 72.9 %; Nucleated Red Blood Cells % 0 %; Platelet Count 280 10^3/cmm (157-399); Red Blood Count 4.86 10^6/uL (3.85-5.65); Red Cell Distribution Width 12.6 % (12.1-15.1); White Blood Count 9.15 10^3/uL (3.29-11.43)
--- NOTE | 2023-10-15 12:17 | CT_ITS ---
WS: [id number] CT HEAD TECHNIQUE: Noncontrast CT of the head obtained from the skullbase to the vertex. CLINICAL INFORMATION: intermittent dizziness/visual changes COMPARISON: None. DLP: 984.[address] scans at [facility] use at least one of these dose optimization techniques: automated e xposure control; mA and/or kV adjustment per patient size (includes targeted exams where dose is matc hed to clinical indication); or iterative reconstruction. FINDINGS: No evidence of intracranial hemorrhage or mass effect. Ventricular system and basal cisterns are danielson nt. No extra-axial fluid collections. No evidence of mass or mass effect. Normal pritchard-white different iation. Paranasal sinuses and mastoid air cells are well aerated. .Normal visualized soft tissues. IMPRESSION: 1. No evidence of intracranial hemorrhage or mass effect. 2. No acute intracranial findings.
[2023-10-15 12:34] LABS: Troponin(5th) Baseline < 6 ng/L (0-10)
[2023-10-15 12:55] LABS: Alanine Aminotransferase 25 U/L (0-33); Albumin Level 4.3 g/dL (3.5-5.2); Alkaline Phosphatase 125 U/L (35-105); Anion Gap 16.3 (5-19); Aspartate Amino Transferase 12 U/L (0-32); Blood Urea Nitrogen 12 mg/dL (6-20); Calcium 9.3 mg/dL (8.5-10.5); Carbon Dioxide 22 mmol/L (22-29); Chloride 102 mmol/L (98-107); Globulin 2.8 g/dL (1.3-4.6); Glomerular Filtration Rate 78.3 mL/min (90-130); Glucose 136 mg/dL (65-115); NT Pro B Type Natriuretic Pept 42 pg/mL (0-125); Osmolality Calculated 284 mOsm/kg (285-295); Potassium 4.3 mmol/L (3.5-5.1); Sodium 136 mmol/L (136-145); Total Bilirubin 0.4 mg/dL (0.15-1.2); Total Protein 7.1 g/dL (6.6-8.7)
[2023-10-15 13:14] VITALS: BP 164/86; BP 164/96; BP 165/91; PULSE 70; PULSE 89; PULSE 90
[2023-10-15 13:18] VITALS: BP 164/86; PULSE 89; RESP 16; O2SAT 98
--- NOTE | 2023-10-15 13:35 | ECG_ITS ---
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 Measurements Intervals [place] Rate: 73 P: -12 NE: 140 QRS: 38 QRSD: 81 T: 30 QT: 349 QTc: 387 Interpretive Statements SINUS RHYTHM Compared to ECG 10/15/2023 11:40:47 ST (T wave) deviation no longer present Electronically Signed On 10-15-2023 16:34:03 INPATIENT PHARMACIST by Alexey Mckeon M.D. [id number]
[2023-10-15 13:44] VITALS: BP 155/92; PULSE 76; RESP 21; O2SAT 99
--- NOTE | 2023-10-15 14:48 | DCPLANNER ---
Message sent to clinic to establish PCP.
== END 2023-10-15 13:46 | disposition home or self-care (01) ==
PROVIDERS: Internal Medicine; Emergency Provider Physician Assistant
DX: R42 Dizziness and giddiness (principal); J44.9 Chronic obstructive pulmonary disease, unspecified; Z72.0 Tobacco use
CPT/HCPCS: 36415; 70450; 71045; 80053; 83880; 84484; 85025; 93005; 99285

== ENCOUNTER → 2023-10-18 12:18 | Outpatient (BNVA) | payer OTHER, SELFPAY | PROVIDERS: PCP Clinical Nurse Specialist Adult Health; Visit Provider Clinical Nurse Specialist Adult Health | DX: R42 Dizziness and giddiness (principal); J44.9 Chronic obstructive pulmonary disease, unspecified | CPT/HCPCS: 83036; 84443 ==

== ENCOUNTER 2023-10-24 07:59 | Outpatient (CLI) | payer OTHER, SELFPAY ==
--- NOTE | 2023-10-24 08:00 | CT_ITS ---
WS: [id number] CT chest wo con [id number] HISTORY: SOB and syncope. possibly r/t copd TECHNIQUE: Axial imaging performed through the thorax. Coronal and sagittal reformats are submitted. All CT scans at [facility] use at least one of these dose optimization techniques: automated exposure control; mA and/or kV adjustment per patient size (includes targeted exams where dose is mat ched to clinical indication); or iterative reconstruction. CONTRAST: None DLP: 498.31 mGy.cm COMPARISON: None available. Lungs and central airway: Normal. Pleura: Normal. No pleural effusion. Heart and pericardium: Normal size heart with no pericardial effusion. Mediastinum and keyanna: No mediastinum or hilar adenopathy. Vessels: Normal size aortic and pulmonary artery. No coronary artery calcifications. Chest wall and lower neck: No soft tissue masses. Upper abdomen: Prior cholecystectomy. Small hiatal hernia. Osseous structures: No destructive process. IMPRESSION: 1. No pneumonia, pulmonary mass or effusion. 2. No adenopathy. 3. Prior cholecystectomy.
== END 2023-10-24 08:00 | disposition home or self-care (01) ==
LOC: RAD 07:59
PROVIDERS: PCP Clinical Nurse Specialist Adult Health; Visit Provider Clinical Nurse Specialist Adult Health
DX: J44.9 Chronic obstructive pulmonary disease, unspecified (principal); R06.02 Shortness of breath; R55 Syncope and collapse; K44.9 Diaphragmatic hernia without obstruction or gangrene
CPT/HCPCS: 71250

== ENCOUNTER 2023-12-24 15:00 | Outpatient (CLI) | payer OTHER, SELFPAY | END 2023-12-24 15:01 | disposition home or self-care (01) | LOC: SLEEP 12-25 10:22 | PROVIDERS: PCP Clinical Nurse Specialist Adult Health; Visit Provider Clinical Nurse Specialist Adult Health | DX: G47.30 Sleep apnea, unspecified (principal); R06.83 Snoring; E66.01 Morbid (severe) obesity due to excess calories; K21.9 Gastro-esophageal reflux disease without esophagitis; F17.200 Nicotine dependence, unspecified, uncomplicated | CPT/HCPCS: G0399 ==

== ENCOUNTER 2023-12-25 15:05 | Outpatient (CLI) | payer OTHER, SELFPAY ==
--- NOTE | 2023-12-25 15:15 | USCV_ITS ---
Mel Bianchi Age: 43 Gender: F : 1980 Exam Date: 12/25/2023 15:12 Ordering Phys: Davian Molina NP Technologist: CT Exam Location: [facility] Indication: Risk Factors: Previous Vascular Surgery: Right Brachial BP: / Left Brachial BP: / Right Left Velocity (cm/s) Spectral Plaque Velocity (cm/s) Spectral Plaque Syst/Diast Broadening Syst/Diast Broadening 110.90/28.10 Prox CCA 122.10/ 33.00 119.60/32.50 Mid CCA 121.70/ 36.60 108.70/25.90 Distal CCA 105.90/ 39.70 64.60/ 21.80 Prox ICA 79.70 / 27.40 59.70/ 20.00 Mid ICA 95.00 / 29.60 53.50/ 26.60 Distal ICA 104.70/ 36.90 128.30 ECA 101.60 0.60 ICA/CCA 1.00 Antegrade Vertebral Antegrade 57.80/ 19.90 cm/s 59.00/ 23.50 cm/s Tri Subclavian Tri 145.7 174.9 0 0 CONCLUSIONS Right ICA stenosis <50%. Left ICA stenosis <50%. Intimal thickening in the common carotid arteries and internal carotid arteries bilaterally. Normal antegrade Doppler flow noted in the right vertebral artery. Normal antegrade Doppler flow noted in the left vertebral artery. Elvin Vaughn MD (Electronically Signed) Final Date: 25 Dec 2023 16:52 S
== END 2023-12-25 15:06 | disposition home or self-care (01) ==
LOC: RAD 15:07
PROVIDERS: PCP Clinical Nurse Specialist Adult Health; Visit Provider Clinical Nurse Specialist Adult Health
DX: R42 Dizziness and giddiness (principal); I65.23 Occlusion and stenosis of bilateral carotid arteries
CPT/HCPCS: 93880

== ENCOUNTER 2024-05-19 10:01 | Emergency (ER) | payer SELFPAY ==
[2024-05-19] VITALS (7 sets, daily range): BP systolic 105–156; BP diastolic 64–123; PULSE 77–123; RESP 19–25; O2SAT 94–98; BMI 36.4
--- NOTE | 2024-05-19 10:01 | ECG_ITS ---
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 Measurements Intervals [place] Rate: 111 P: 47 MO: 144 QRS: 51 QRSD: 84 T: 44 QT: 307 QTc: 417 Interpretive Statements SINUS TACHYCARDIA POSSIBLE LEFT ATRIAL ENLARGEMENT [-0.1mV P-WAVE IN V1/V2] LOW QRS VOLTAGE IN PRECORDIAL LEADS [QRS DEFLECTION < 1.0 mV IN CHEST LEADS] MINIMAL ST DEPRESSION [0.025+ mV ST DEPRESSION] Compared to ECG 10/15/2023 13:31:39 Low QRS voltage now present ST (T wave) deviation now present Sinus rhythm no longer present Electronically Signed On 05-19-2024 16:52:44 CDT by Alexey Mckeon M.D. [id number]
[2024-05-19] MEDS: sodium chloride 0.9% 1,000 ML 999 ML IV (10:39)
[2024-05-19] MEDS: LORazepam 2 mg/mL INJ 1 mL 1 MG IVP (10:47)
[2024-05-19] MEDS: haloperidol inj 5 mg/mL INJ 1 mL 2.5 MG IVP (10:48)
--- NOTE | 2024-05-19 11:05 | PC.PHAR ---
pt verified current medications-several were filled back in November 2023
[2024-05-19 11:06] LABS: Basophils # 0.1 10^3/uL (0.0-0.1); Basophils % 0.5 %; Eosinophils # 0.2 10^3/uL (0.0-0.8); Hematocrit 45.2 % (36-47); Lymphocytes # 2.4 10^3/uL (0.8-4.8); Lymphocytes % 11.7 %; Mean Corpuscular HGB Conc 33.8 g/dL (30-55); Mean Corpuscular Hemoglobin 31.1 pg (27-33); Mean Corpuscular Volume 91.9 fl (85-98); Mean Platelet Volume 9.7 fL (7.4-10.4); Monocytes # 0.9 10^3/uL (0.2-0.9); Monocytes % 4.2 %; Neutrophils # 17.15 10^3/uL (1.8-7.7); Neutrophils % 81.9 %; Nucleated Red Blood Cells % 0 %; Platelet Count 364 10^3/cmm (157-399); Red Blood Count 4.92 10^6/uL (3.85-5.65); Red Cell Distribution Width 12.9 % (12.1-15.1); White Blood Count 20.91 10^3/uL (3.29-11.43)
[2024-05-19 11:27] LABS: Troponin(5th) Baseline < 6 ng/L (0-10)
[2024-05-19 11:43] LABS: Alanine Aminotransferase 20 U/L (0-33); Albumin Level 4.4 g/dL (3.5-5.2); Alkaline Phosphatase 152 U/L (35-105); Anion Gap 19.1 (5-19); Aspartate Amino Transferase 11 U/L (0-32); Blood Urea Nitrogen 19 mg/dL (6-20); Calcium 9.5 mg/dL (8.5-10.5); Carbon Dioxide 21 mmol/L (22-29); Chloride 98 mmol/L (98-107); Creatinine Clr Calc Pharmacy 72.9421; Globulin 2.8 g/dL (1.3-4.6); Glomerular Filtration Rate 60.5 mL/min (90-130); Glucose 107 mg/dL (65-115); Lipase 33 U/L (13-60); Osmolality Calculated 281 mOsm/kg (285-295); Potassium 4.1 mmol/L (3.5-5.1); Sodium 134 mmol/L (136-145); Total Bilirubin 0.3 mg/dL (0.15-1.2); Total Protein 7.2 g/dL (6.6-8.7)
--- NOTE | 2024-05-19 12:10 | XRR_ITS ---
PROCEDURE INFORMATION: Exam: XR Chest Exam date and time: 05/19/2024 12:19 PM Age: 43 years old Clinical indication: Pain; Cough and dyspnea; Angina pectoris; Additional info: Dyspnea/cough TECHNIQUE: Imaging protocol: Radiologic exam of the chest. Views: 1 view. COMPARISON: CT chest [facility] [id number] 10/24/2023 8:01 AM FINDINGS: Lungs: Unremarkable. No consolidation. Pleural spaces: Unremarkable. No pleural effusion. No pneumothorax. Heart/Mediastinum: Unremarkable. No cardiomegaly. Bones/joints: Unremarkable. XR/XR chest 1V portable [id number] IMPRESSION: No acute findings.
--- NOTE | 2024-05-19 12:25 | ECG_ITS ---
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 Measurements Intervals [place] Rate: 75 P: 48 AK: 150 QRS: 57 QRSD: 76 T: 28 QT: 376 QTc: 420 Interpretive Statements SINUS RHYTHM LOW QRS VOLTAGE IN PRECORDIAL LEADS [QRS DEFLECTION < 1.0 mV IN CHEST LEADS] NONSPECIFIC T-WAVE ABNORMALITY Compared to ECG 05/19/2024 10:01:09 T-wave abnormality now present Sinus tachycardia no longer present ST (T wave) deviation no longer present Electronically Signed On 05-19-2024 16:56:18 CDT by Alexey Mckeon M.D. [id number]
[2024-05-19 13:39] LABS: Bilirubin Urine Negative (Negative); Blood Urine Negative (Negative); Glucose Urine UA Negative (Normal); Ketones Urine Negative (Negative); Leukocyte Esterase Urine 2+ (Negative); Nitrate Urine Negative (Negative); Protein Urine Trace (Negative); Specific Gravity, Urine 1.028 (1.005-1.030); Urine Color Yellow (Yellow); pH Urine 5.5 (5-7)
--- NOTE | 2024-05-19 13:41 | W.ED.CHESTPA ---
HPI - Chest Pain General: Chief Complaint: Chest Pain Stated Complaint: CP Time Seen by Provider: 05/19/24 10:09 History of Present Illness: 43-year-old female presents emergency room complaining chest pain began last night around 9:00. She has a history of intermittent episodes of chest pain noncardiac. She has had a history of COPD as well she does still smoke a pack a day. She complaining of nausea and vomiting Associated symptoms: Deny abdominal pain, dyspnea or fever(s) Related Data Home Medications Medication Instructions Recorded Confirmed ibuprofen 200 mg tablet (Advil) 200 - 400 mg PO PRN PRN Pain 06/24/20 05/19/24 Previous Rx's Medication Instructions Recorded albuterol sulfate 90 mcg/actuation 1 inh inhalation QID PRN Shortness 12/18/23 aerosol inhaler Of Breath #8.5 grams budesonide-formoterol HFA 80 2 puff inhalation BID #10.2 grams 12/18/23 mcg-4.5 mcg/actuation aerosol inhaler (Symbicort) losartan 25 mg tablet 25 mg PO DAILY #30 tabs 12/18/23 omeprazole magnesium 20 mg 20 mg PO DAILY #30 tabs 12/18/23 tablet,delayed release (Prilosec OTC) Allergies Allergy/AdvReac Type Severity Reaction Status Date / Time Iodinated Contrast Media Allergy ALGY-Difficulty Verified 12/18/23 11:04 Breathing naproxen Allergy ALGY-Difficulty Verified 12/18/23 11:04 Breathing Review of Systems Const: Denies: fever(s) or chills Card: Reports: chest pain; Denies: edema Resp: Denies: dyspnea GI: Denies: abdominal pain : Denies: dysuria, urinary frequency or urinary urgency Musc: Denies: neck pain or back pain Skin/Breast: Denies: rash PFSH ED PFSH: Medical History Vertigo COPD (chronic obstructive pulmonary disease) Essential hypertension GERD (gastroesophageal reflux disease) Generalized osteoarthritis Tobacco dependence Morbid obesity Hx of cervical cancer with removal of part of her cervix Surgical History Hx of colposcopy with cervical biopsy Hx of tubal ligation Hx of cholecystectomy Family History Other CAD (coronary artery disease) Heart disease Lung cancer Social History Smoking and tobacco/nicotine status: current every day tobacco/nicotine user cigarettes Packs smoked per day: 2 Years cigarettes smoked: 30 Alcohol intake: never Substance/Drug Use: never Household members: spouse Physical Exam Const: COMMON NORMALS: no acute distress GENERAL APPEARANCE: cooperative and comfortable ORIENTATION/CONSCIOUSNESS: Yes awake, Yes oriented to person, Yes oriented to place and Yes oriented to time HENMT: COMMON NORMALS: normocephalic, atraumatic and hearing grossly normal bilaterally HEAD & SCALP: normocephalic and atraumatic Resp: COMMON NORMALS: normal respiratory effort, No retractions, No use of accessory muscles and clear to auscultation bilaterally AUSCULTATION: clear to auscultation bilaterally Cardio: COMMON NORMALS: regular rate, regular rhythm and No murmurs present (Cardio) RATE: regular rate RHYTHM: regular rhythm GI: COMMON NORMALS: Soft to palpation and No hepatosplenomegaly present AUSCULTATION: Yes normoactive bowel sounds PALPATION: Yes Soft to palpation, No Tenderness to palpation present (GI), No Guarding due to palpation present (GI) and Yes No hepatosplenomegaly present Extremity: COMMON NORMALS: normal to inspection, capillary refill normal, no clubbing, cyanosis or edema, no calf tenderness and no pedal edema Neuro: SENSORIUM/ORIENTATION: Yes oriented to person, Yes oriented to place and Yes oriented to time Skin: COMMON NORMALS: no rashes or lesions noted GENERAL SKIN EXAM: no rashes or lesions noted Course Vital Signs: Vital signs: Vital Signs Pulse Rate 84 05/19/24 14:23 Respiratory Rate 23 H 05/19/24 13:43 Blood Pressure 128/95 05/19/24 14:23 Pulse Oximetry 95 05/19/24 14:23 Oxygen Delivery Me thod Room Air 05/19/24 13:43 Oxygen Flow Rate 2 05/19/24 11:13 MDM - Chest Pain Medical Decision Making Heart score is 0. Patient's pain. Intermittent nausea she does smoke 1 pack/day I think her pain is more related to COPD. Was concerned that she may have a PE we had recommended that she have a CTA of the chest however she refused she said she is allergic to the dye I discussed with her different type of dye and iodine allergies are usually not of concern we simply premedicate she refuses and demands to leave immediately. She is advised she can return at any point if she wanted to complete the workup. Her white count is slightly elevated. I believe there is due to stress may be a viral reaction. Has albuterol at home encouraged her to use the albuterol regularly return if she has further problems. Medical Records I reviewed the patient's medical records. Lab Data I reviewed the patient's lab results. 05/19/24 11:00 05/19/24 11:00 Radiology Impressions Chest X-Ray 05/19/24 12:10 IMPRESSION: No acute findings. Laboratory Results WBC 20.91 10^3/uL (3.29-11.43) H 05/19/24 11:00 RBC 4.92 10^6/uL (3.85-5.65) 05/19/24 11:00 Hgb 15.30 g/dL (11.27-16.99) 05/19/24 11:00 Hct 45.2 % (36-47) 05/19/24 11:00 MCV 91.9 fl (85-98) 05/19/24 11:00 MCH 31.1 pg (27-33) 05/19/24 11:00 MCHC 33.8 g/dL (30-55) 05/19/24 11:00 RDW 12.9 % (12.1-15.1) 05/19/24 11:00 Plt Count 364 10^3/cmm (157-399) 05/19/24 11:00 MPV 9.7 fL (7.4-10.4) 05/19/24 11:00 Neut % (Auto) 81.9 % 05/19/24 11:00 Lymph % (Auto) 11.7 % 05/19/24 11:00 [place] % (Auto) 4.2 % 05/19/24 11:00 Eos % (Auto) 1.0 % 05/19/24 11:00 Baso % (Auto) 0.5 % 05/19/24 11:00 Neut # (Auto) 17.15 10^3/uL (1.8-7.7) H 05/19/24 11:00 Lymph # (Auto) 2.4 10^3/uL (0.8-4.8) 05/19/24 11:00 [place] # (Auto) 0.9 10^3/uL (0.2-0.9) 05/19/24 11:00 Eos # (Auto) 0.2 10^3/uL (0.0-0.8) 05/19/24 11:00 Baso # (Auto) 0.1 10^3/uL (0.0-0.1) 05/19/24 11:00 Nucleated RBC % (auto) 0 % 05/19/24 11:00 Nucleated RBCs # 0.0 /100WBC 05/19/24 11:00 Sodium 134 mmol/L (136-145) L 05/19/24 11:00 Potassium 4.1 mmol/L (3.5-5.1) 05/19/24 11:00 Chloride 98 mmol/L (98-107) 05/19/24 11:00 Carbon Dioxide 21 mmol/L (22-29) L 05/19/24 11:00 Anion Gap 19.1 (5-19) H 05/19/24 11:00 BUN 19 mg/dL (6-20) 05/19/24 11:00 Creatinine 1.0 mg/dL (0.5-0.9) H 05/19/24 11:00 GFR Calculation 60.5 mL/min (90-130) L 05/19/24 11:00 Glucose 107 mg/dL (65-115) 05/19/24 11:00 Calculated Osmolality 281 mOsm/kg (285-295) L 05/19/24 11:00 Calcium 9.5 mg/dL (8.5-10.5) 05/19/24 11:00 Total Bilirubin 0.3 mg/dL (0.15-1.2) 05/19/24 11:00 AST 11 U/L (0-32) 05/19/24 11:00 ALT 20 U/L (0-33) 05/19/24 11:00 Alkaline Phosphatase 152 U/L (35-105) H 05/19/24 11:00 Troponin T Baseline < 6 ng/L (0-10) 05/19/24 11:00 Troponin T 120 Minute 6.00 ng/L (0-10) 05/19/24 13:15 Delta Troponin T 0.33379 ABS# (0-10) 05/19/24 13:15 Total Protein 7.2 g/dL (6.6-8.7) 05/19/24 11:00 Albumin 4.4 g/dL (3.5-5.2) 05/19/24 11:00 Globulin 2.8 g/dL (1.3-4.6) 05/19/24 11:00 Lipase 33 U/L (13-60) 05/19/24 11:00 Urine Color Yellow (Yellow) 05/19/24 13:30 Urine Appearance Slightly cloudy (CLEAR) 05/19/24 13:30 Urine pH 5.5 (5-7) 05/19/24 13:30 Ur Specific [place] 1.028 (1.005-1.030) 05/19/24 13:30 Urine Protein Trace (Negative) A 05/19/24 13:30 Urine Glucose (UA) Negative (Normal) 05/19/24 13:30 Urine Ketones Negative (Negative) 05/19/24 13:30 Urine Blood Negative (Negative) 05/19/24 13:30 Urine Nitrate Negative (Negative) 05/19/24 13:30 Urine Bilirubin Negative (Negative) 05/19/24 13:30 Urine Urobilinogen 1.0 mg/dL (Negative) 05/19/24 13:30 Ur Leukocyte Esterase 2+ (Negative) A 05/19/24 13:30 Urine RBC 6-10 /hpf (0-2) 05/19/24 13:30 Urine WBC 0-5 /hpf (0-5) 05/19/24 13:30 Ur Squamous Epith Cells 6-10 /hpf (0-5) 05/19/24 13:30 Amorphous Sediment Not Reportable 05/19/24 13:30 Urine Bacteria 4+ /hpf (NONE) H 05/19/24 13:30 Hyaline Casts 1.65 /lpf 05/19/24 13:30 All radiology interpretation(s) finalized by discharge Clincial Decision Support The following clinical decision support tools were used to aid in care of the patient HEART Score -> History: Slightly Suspicous, EKG: Normal, Age: Less than 45 yrs, Risk Factors: No Risk Factors Known, Troponin: Baseline Trop <16 ng/L. Resulting HEART Score: 0. Discharge Plan Discharge Patient Disposition: Home Clinical Impression: Chest pain COPD (chronic obstructive pulmonary disease) Qualifiers: COPD type: unspecified COPD Qualified Code(s): J44.9 - Chronic obstructive pulmonary disease, unspecified Condition: Stable Prescriptions: No Action omeprazole magnesium [Prilosec OTC] 20 mg tablet,delayed release (DR/EC) 20 mg PO DAILY Qty: 30 11RF losartan 25 mg tablet 25 mg PO DAILY Qty: 30 11RF budesonide-formoterol [Symbicort] 80-4.5 mcg/actuation HFA aerosol inhaler 2 puff inhalation BID Qty: 10.2 11RF albuterol sulfate 90 mcg/actuation HFA aerosol inhaler 1 inh INHALATION QID PRN (Reason: Shortness Of Breath) Qty: 8.5 6RF ibuprofen [Advil] 200 mg Tablet 200 - 400 mg PO PRN PRN (Reason: Pain) Discharge Orders: Discharge ED (Routine); Ordered 05/19/24 Ordered By: Ariel Stratton Referrals: Davian Molina, PLASTIC STRAIGHTENING ROLL OPERATOR [Primary Care Provider] - Patient Instructions: Opioid Safety, Pain Management Activity Restrictions/Additional Instructions: Thank you for choosing [facility] for your healthcare needs today. It is very important that you follow up as instructed or that you return to the Emergency Department should you have concerns or if your condition changes or worsens in any way. You were seen emergency room with complaints of chest pain and shortness of breath. You chose to leave before the workup was complete therefore we cannot give you results of a full evaluation. You have worsening symptoms, return emergency room you are welcome to return anytime to complete the evaluation. Coding Level of Care Code ED Outside Cutter Hand for Paola Gomez
[2024-05-19 13:46] LABS: Add Urine Microscopic? YES; Bacteria Urine 4+ /hpf; Hyaline Casts Urine 1.65 /lpf; WBC Urine 0-5 /hpf (0-5)
[2024-05-19 13:47] LABS: Add Urine Culture? Yes; Urine Appearance Slightly Cloudy (CLEAR)
[2024-05-19 13:49] LABS: Troponin 5 2HR Delta 0.00001 ABS# (0-10)
== END 2024-05-19 14:24 | disposition home or self-care (01) ==
PROVIDERS: Emergency Provider Family Medicine; PCP Clinical Nurse Specialist Adult Health
DX: R07.9 Chest pain, unspecified (principal); J44.9 Chronic obstructive pulmonary disease, unspecified; F17.210 Nicotine dependence, cigarettes, uncomplicated; I10 Essential (primary) hypertension; Z85.41 Personal history of malignant neoplasm of cervix uteri
CPT/HCPCS: 36415; 71045; 80053; 81001; 83690; 84484; 85025; 87086; 93005; 96361; 96374; 96375; 99285; J1630; J2060; J7030

== ENCOUNTER 2024-07-27 10:16 | Outpatient (CLI) | payer SELFPAY ==
--- NOTE | 2024-07-27 10:00 | US_ITS ---
WS: [id number] ULTRASOUND ABDOMEN CLINICAL INFORMATION: R10.9 - Unspecified abdominal pain COMPARISON: None. FINDINGS: Technically difficult study due to body habitus Liver Size: Enlarged Craniocaudal length: 17.2 cm. Echogenicity: Fatty Surface nodularity: None. Mass (size and location): None. Bile ducts Intrahepatic ducts: Normal. Common bile duct diameter: 0.5 cm. Gallbladder Prior cholecystectomy Pancreas Normal as visualized. Spleen Splenomegaly: None. Craniocaudal length: 11.5 cm. Right kidney: Normal. Hydronephrosis: None. Size: 9.8 cm x 4.5 cm x 4.8 cm Left kidney: Normal. Hydronephrosis: None. Size: 10.1 cm x 4.4 cm x 4.8 cm. Abdominal aorta and IVC Visualized portions are normal. Ascites: None. US/US abdomen complete* [id number] IMPRESSION: Technically difficult study due to body habitus. 1. Mild hepatomegaly diffuse fatty infiltration of the liver. 2. Cholecystectomy. 3. No hydronephrosis in either kidney.
== END 2024-07-27 10:17 | disposition home or self-care (01) ==
PROVIDERS: PCP Clinical Nurse Specialist Adult Health; Visit Provider Clinical Nurse Specialist Adult Health
DX: K76.0 Fatty (change of) liver, not elsewhere classified (principal); R10.9 Unspecified abdominal pain; Z90.49 Acquired absence of other specified parts of digestive tract
CPT/HCPCS: 76700

== ENCOUNTER → 2024-09-14 09:03 | Outpatient (BNVA) | payer OTHER, SELFPAY | PROVIDERS: PCP Clinical Nurse Specialist Adult Health; Visit Provider Clinical Nurse Specialist Adult Health | DX: J44.1 Chronic obstructive pulmonary disease with (acute) exacerbation (principal) | CPT/HCPCS: 71046 ==

== ENCOUNTER → 2024-09-28 13:16 | Outpatient (BNVA) | payer OTHER, SELFPAY | PROVIDERS: PCP Clinical Nurse Specialist Adult Health; Visit Provider Clinical Nurse Specialist Adult Health | DX: J44.1 Chronic obstructive pulmonary disease with (acute) exacerbation (principal) | CPT/HCPCS: 85025; 85651; 86140 ==

== ENCOUNTER 2024-10-06 13:15 | Emergency (ER) | payer OTHER, SELFPAY ==
[2024-10-06 13:19] VITALS: BP 156/87; PULSE 99; RESP 20; TEMP 36.6; O2SAT 99; BMI 38.7
--- NOTE | 2024-10-06 13:19 | XR_ITS ---
WS: [id number] XR chest 1V portable [id number] REASON FOR EXAM: cough FINDINGS: Chest is unchanged compared to 09/14/2024. The heart and the mediastinum are within normal limits. Minimal calcified granulomatous disease bilaterally. No acute pulmonary parenchymal or pleural abnormality is identified. Bony thorax is intact without significant abnormality. XR/XR chest 1V portable [id number] IMPRESSION: Stable chest without acute abnormality.
--- NOTE | 2024-10-06 13:38 | W.ED.SOB ---
HPI - SOB/Dyspnea General: Chief Complaint: Shortness of Breath/Dyspnea Stated Complaint: sever cough, SOB Time Seen by Provider: 10/06/24 13:37 History of Present Illness: HPI Narrative: 44-year-old female presents emergency room complaining of chronic persistent cough began about 6 weeks ago. She has been on rounds of antibiotics and steroids she is a smoker continues to smoke. She has a persistent nonproductive cough no chest pain. She does have some musculoskeletal chest wall pain after fits of coughing. No hemoptysis. No history of DVT or PE. Associated symptoms: Deny abdominal pain, chest pain or fever(s) Related Data Home Medications ?Medication ?Instructions ?Recorded ?Confirmed ibuprofen 200 mg tablet (Advil) 200 - 400 mg PO PRN PRN Pain 06/24/20 10/06/24 Previous Rx's ?Medication ?Instructions ?Recorded albuterol sulfate 90 mcg/actuation 1 inh inhalation QID PRN Shortness 12/18/23 aerosol inhaler Of Breath #8.5 grams bupropion HCl 100 mg tablet,12 hr 100 mg PO QAM #30 tabs 07/09/24 sustained-release (Wellbutrin SR) losartan 25 mg tablet 25 mg PO BID #60 tabs 08/10/24 omeprazole magnesium 20 mg 20 mg PO BID #60 tabs 08/10/24 tablet,delayed release (Prilosec OTC) Nebulizer machine and supplies #1 ea 08/31/24 ipratropium 0.5 mg-albuterol 3 mg 3 ml inhalation QID PRN wheezing 08/31/24 (2.5 mg base)/3 mL nebulization #90 mL soln benzonatate 100 mg capsule 100 mg PO TID PRN cough #45 caps 09/28/24 budesonide-formoterol HFA 160 1 inh inhalation BID #10.2 grams 10/05/24 mcg-4.5 mcg/actuation aerosol inhaler budesonide-formoterol HFA 160 2 inh inhalation BID #10.2 grams 10/06/24 mcg-4.5 mcg/actuation aerosol inhaler (Breyna) doxycycline hyclate 100 mg capsule 100 mg PO BID 10 days #20 caps 10/06/24 ipratropium 0.5 mg-albuterol 3 mg 3 ml inhalation Q4H PRN shortness 10/06/24 (2.5 mg base)/3 mL nebulization of breath or wheezing #90 mL soln prednisone 20 mg tablet 20 mg PO TID #15 tabs 10/06/24 Allergies Allergy/AdvReac Type Severity Reaction Status Date / Time Iodinated Contrast Media Allergy ALGY-Difficulty Verified 10/06/24 13:29 Breathing naproxen Allergy ALGY-Difficulty Verified 10/06/24 13:29 Breathing Review of Systems Const: Denies: fever(s) or chills Card: Denies: chest pain Resp: Reports: dyspnea, non-productive cough and wheezing GI: Denies: abdominal pain : Denies: dysuria, urinary frequency or urinary urgency Musc: Denies: neck pain or back pain Skin/Breast: Denies: rash PFSH ED PFSH: Medical History Vertigo COPD (chronic obstructive pulmonary disease) Essential hypertension GERD (gastroesophageal reflux disease) Generalized osteoarthritis Tobacco dependence Morbid obesity Hx of cervical cancer with removal of part of her cervix Surgical History Hx of colposcopy with cervical biopsy Hx of tubal ligation Hx of cholecystectomy Family History Other CAD (coronary artery disease) Heart disease Lung cancer Social History Smoking and tobacco/nicotine status: current every day tobacco/nicotine user cigarettes Packs smoked per day: 2 Years cigarettes smoked: 30 Alcohol intake: never Substance/Drug Use: never Household members: spouse Physical Exam Const: COMMON NORMALS: no acute distress GENERAL APPEARANCE: cooperative and comfortable ORIENTATION/CONSCIOUSNESS: Yes awake, Yes oriented to person, Yes oriented to place and Yes oriented to time HENMT: COMMON NORMALS: normocephalic, atraumatic and hearing grossly normal bilaterally HEAD & SCALP: normocephalic and atraumatic Resp: COMMON NORMALS: normal respiratory effort, No retractions, No use of accessory muscles and clear to auscultation bilaterally AUSCULTATION: clear to auscultation bilaterally Cardio: COMMON NORMALS: regular rate, regular rhythm and No murmurs present (Cardio) RATE: regular rate RHYTHM: regular rhythm GI: COMMON NORMALS: Soft to palpation and No hepatosplenomegaly present AUSCULTATION: Yes normoactive bowel sounds PALPATION: Yes Soft to palpation, No Tenderness to palpation present (GI), No Guarding due to palpation present (GI) and Yes No hepatosplenomegaly present Extremity: COMMON NORMALS: normal to inspection, capillary refill normal, no clubbing, cyanosis or edema, no calf tenderness and no pedal edema Neuro: SENSORIUM/ORIENTATION: Yes oriented to person, Yes oriented to place and Yes oriented to time Skin: COMMON NORMALS: no rashes or lesions noted GENERAL SKIN EXAM: no rashes or lesions noted Course Vital Signs: Vital signs: Vital Signs Temperature 97.9 F 10/06/24 13:19 Pulse Rate 82 10/06/24 15:28 Respiratory Rate 18 10/06/24 14:44 Blood Pressure 115/74 10/06/24 15:28 Pulse Oximetry 94 10/06/24 15:28 Oxygen Delivery Me thod Room Air 10/06/24 14:44 MDM - SOB/Dyspnea Medical Decision Making No acute findings. 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 Will have her increase her budesonide/formoterol to 2 inhalations twice daily. Encouraged more aggressive use of albuterol she is given a steroid taper and started on doxycycline follow-up with primary care doctor if persist would likely benefit from referral to pulmonology Medical Records I reviewed the patient's medical records. Lab Data I reviewed the patient's lab results. 10/06/24 14:02 10/06/24 14:02 Labs/Radiology: Radiology Impressions Chest X-Ray 10/06/24 13:19 IMPRESSION: Stable chest without acute abnormality. Laboratory Results WBC 7.99 10^3/uL (3.29-11.43) 10/06/24 14:02 RBC 4.19 10^6/uL (3.85-5.65) 10/06/24 14:02 Hgb 13.10 g/dL (11.27-16.99) 10/06/24 14:02 Hct 38.9 % (36-47) 10/06/24 14:02 MCV 92.8 fl (85-98) 10/06/24 14:02 MCH 31.3 pg (27-33) 10/06/24 14:02 MCHC 33.7 g/dL (30-55) 10/06/24 14:02 RDW 13.0 % (12.1-15.1) 10/06/24 14:02 Plt Count 348 10^3/cmm (157-399) 10/06/24 14:02 MPV 9.6 fL (7.4-10.4) 10/06/24 14:02 Neut % (Auto) 55.5 % 10/06/24 14:02 Lymph % (Auto) 32.8 % 10/06/24 14:02 [place] % (Auto) 7.1 % 10/06/24 14:02 Eos % (Auto) 2.5 % 10/06/24 14:02 Baso % (Auto) 1.0 % 10/06/24 14:02 Neut # (Auto) 4.43 10^3/uL (1.8-7.7) 10/06/24 14:02 Lymph # (Auto) 2.6 10^3/uL (0.8-4.8) 10/06/24 14:02 [place] # (Auto) 0.6 10^3/uL (0.2-0.9) 10/06/24 14:02 Eos # (Auto) 0.2 10^3/uL (0.0-0.8) 10/06/24 14:02 Baso # (Auto) 0.1 10^3/uL (0.0-0.1) 10/06/24 14:02 Nucleated RBC % (auto) 0 % 10/06/24 14:02 Nucleated RBCs # 0.0 /100WBC 10/06/24 14:02 D-Dimer 0.38 ug/mLFEU (0-0.59) 10/06/24 14:02 Sodium 135 mmol/L (136-145) L 10/06/24 14:02 Potassium 4.5 mmol/L (3.5-5.1) 10/06/24 14:02 Chloride 98 mmol/L (98-107) 10/06/24 14:02 Carbon Dioxide 24 mmol/L (22-29) 10/06/24 14:02 Anion Gap 17.5 (5-19) 10/06/24 14:02 BUN 7 mg/dL (6-20) 10/06/24 14:02 Creatinine 0.7 mg/dL (0.5-0.9) 10/06/24 14:02 GFR Calculation 90.9 mL/min (90-130) 10/06/24 14:02 Glucose 86 mg/dL (65-115) 10/06/24 14:02 Calculated Osmolality 277 mOsm/kg (285-295) L 10/06/24 14:02 Calcium 9.2 mg/dL (8.5-10.5) 10/06/24 14:02 Total Bilirubin 0.3 mg/dL (0.15-1.2) 10/06/24 14:02 AST 16 U/L (0-32) 10/06/24 14:02 ALT 24 U/L (0-33) 10/06/24 14:02 Alkaline Phosphatase 134 U/L (35-105) H 10/06/24 14:02 Total Protein 6.9 g/dL (6.6-8.7) 10/06/24 14:02 Albumin 3.9 g/dL (3.5-5.2) 10/06/24 14:02 Globulin 3.0 g/dL (1.3-4.6) 10/06/24 14:02 Coronavirus (PCR) Negative (Negative) 10/06/24 13:35 Influenza A (PCR) Negative (Negative) 10/06/24 13:35 Influenza Type B (PCR) Negative (Negative) 10/06/24 13:35 RSV (PCR) Negative (Negative) 10/06/24 13:35 All radiology interpretation(s) finalized by discharge Discharge Plan Discharge Patient Disposition: Home Clinical Impression: Acute exacerbation of chronic obstructive pulmonary disease (COPD), Post-infection bronchospasm Condition: Stable Prescriptions: New prednisone 20 mg tablet 20 mg PO TID Qty: 15 0RF Rx Instructions: 1 p.o. 3 times daily x3 days, 1 p.o. twice daily x2 days, 1 p.o. daily x2 days budesonide-formoterol [Breyna] 160-4.5 mcg/actuation HFA aerosol inhaler 2 inh inhalation BID Qty: 10.2 0RF doxycycline hyclate 100 mg capsule 100 mg PO BID 10 Days Qty: 20 0RF ipratropium-albuterol 0.5 mg-3 mg(2.5 mg base)/3 mL solution for nebulization 3 ml inhalation Q4H PRN (Reason: shortness of breath or wheezing) Qty: 90 0RF No Action bupropion HCl [Wellbutrin SR] 100 mg tablet sustained-release 12 hr 100 mg PO QAM Qty: 30 3RF losartan 25 mg tablet 25 mg PO BID Qty: 60 11RF omeprazole magnesium [Prilosec OTC] 20 mg tablet,delayed release (DR/EC) 20 mg PO BID Qty: 60 11RF albuterol sulfate 90 mcg/actuation HFA aerosol inhaler 1 inh INHALATION QID PRN (Reason: Shortness Of Breath) Qty: 8.5 6RF ipratropium-albuterol 0.5 mg-3 mg(2.5 mg base)/3 mL solution for nebulization 3 ml inhalation QID PRN (Reason: wheezing) Qty: 90 0RF (DME) Nebulizer machine and supplies See Rx Instructions .ROUTE .MEDSUPPLY Qty: 1 11RF Rx Instructions: As directed benzonatate 100 mg capsule 100 mg PO TID PRN (Reason: cough) Qty: 45 0RF budesonide-formoterol 160-4.5 mcg/actuation HFA aerosol inhaler 1 inh inhalation BID Qty: 10.2 11RF ibuprofen [Advil] 200 mg Tablet 200 - 400 mg PO PRN PRN (Reason: Pain) Discharge Orders: Discharge ED (Routine); Ordered 10/06/24 Ordered By: Ariel Stratton Other Ambulatory Orders: DME: Nebulizer with Neb Kit (Order) Location: None Selected Ordered By: Ariel Stratton Referrals: Davian Molina, CERTIFIED TECHNICIAN [Primary Care Provider] - Discharge Diet: Usual diet Discharge Activity: Increase activity as tolerated Patient Instructions: Opioid Safety, Pain Management Activity Restrictions/Additional Instructions: Thank you for choosing [facility] for your healthcare needs today. It is very important that you follow up as instructed or that you return to the Emergency Department should you have concerns or if your condition changes or worsens in any way. You were seen in the emergency room for chronic cough. It is very important that you stop smoking completely. Recommend that you start another steroid taper also use course of doxycycline prescription given for both of these. Additionally you can use the nebulizer every 6 hours as needed you were given a prescription for DuoNeb (cimetropium bromide and albuterol). Finally recommend that you follow-up with your primary care doctor if the cough persist she would need a referral to mechanical engineering officer. Print Language: [place] Leonean Coding Level of Care Code ED Seals Engraver for Paola Gomez
[2024-10-06 13:40] VITALS: BP 138/77; PULSE 84; RESP 16; O2SAT 98
[2024-10-06] MEDS: dexamethasone 10 mg/mL INJ IM (14:07)
--- NOTE | 2024-10-06 14:15 | ECG_ITS ---
[facility] [place] Test Date: 2024-10-06 Pat Name: Mel Bianchi Department: Room: Gender: Female Plastics Supervisor: : 1980 Requested By: Ariel Calabrese Order Number: [id number] Antonette MD: Joey Ronquillo M.D. Measurements Intervals [place] Rate: 82 P: 57 NM: 142 QRS: 73 QRSD: 81 T: 55 QT: 336 QTc: 394 Interpretive Statements SINUS RHYTHM MINIMAL ST DEPRESSION [0.025+ mV ST DEPRESSION] Compared to ECG 05/19/2024 12:26:02 ST (T wave) deviation now present T-wave abnormality no longer present Electronically Signed On 10-07-2024 17:21:09 SECURITY ARCHITECT by Joey Ronquillo M.D. [email or web address] [id number]
[2024-10-06 14:21] LABS: Basophils # 0.1 10^3/uL (0.0-0.1); Eosinophils # 0.2 10^3/uL (0.0-0.8); Eosinophils % 2.5 %; Hematocrit 38.9 % (36-47); Lymphocytes # 2.6 10^3/uL (0.8-4.8); Lymphocytes % 32.8 %; Mean Corpuscular HGB Conc 33.7 g/dL (30-55); Mean Corpuscular Hemoglobin 31.3 pg (27-33); Mean Corpuscular Volume 92.8 fl (85-98); Mean Platelet Volume 9.6 fL (7.4-10.4); Monocytes # 0.6 10^3/uL (0.2-0.9); Monocytes % 7.1 %; Neutrophils # 4.43 10^3/uL (1.8-7.7); Neutrophils % 55.5 %; Nucleated Red Blood Cells % 0 %; Platelet Count 348 10^3/cmm (157-399); Red Blood Count 4.19 10^6/uL (3.85-5.65); White Blood Count 7.99 10^3/uL (3.29-11.43)
[2024-10-06 14:39] LABS: Alanine Aminotransferase 24 U/L (0-33); Albumin Level 3.9 g/dL (3.5-5.2); Alkaline Phosphatase 134 U/L (35-105); Anion Gap 17.5 (5-19); Aspartate Amino Transferase 16 U/L (0-32); Blood Urea Nitrogen 7 mg/dL (6-20); Calcium 9.2 mg/dL (8.5-10.5); Carbon Dioxide 24 mmol/L (22-29); Chloride 98 mmol/L (98-107); Creatinine Clr Calc Pharmacy 106.6538; Glomerular Filtration Rate 90.9 mL/min (90-130); Glucose 86 mg/dL (65-115); Osmolality Calculated 277 mOsm/kg (285-295); Potassium 4.5 mmol/L (3.5-5.1); Sodium 135 mmol/L (136-145); Total Bilirubin 0.3 mg/dL (0.15-1.2); Total Protein 6.9 g/dL (6.6-8.7)
[2024-10-06 14:40] LABS: D Dimer 0.38 ug/mLFEU (0-0.59)
[2024-10-06] MEDS: ipratropium-albuterol 3 mL Neb INHALATION (14:42)
[2024-10-06 14:44] VITALS: PULSE 80; RESP 18; O2SAT 93
[2024-10-06 14:52] VITALS: PULSE 90
[2024-10-06 14:54] LABS: Covid PCR NEGATIVE (Negative); Influenza A NEGATIVE (Negative); Influenza B NEGATIVE (Negative); Respiratory Syncytial Virus Ce NEGATIVE (Negative)
[2024-10-06 15:28] VITALS: BP 115/74; PULSE 82; O2SAT 94
== END 2024-10-06 15:30 | disposition home or self-care (01) ==
PROVIDERS: Emergency Medicine; Emergency Provider Family Medicine; PCP Clinical Nurse Specialist Adult Health
DX: J44.1 Chronic obstructive pulmonary disease with (acute) exacerbation (principal); J98.01 Acute bronchospasm; Z11.52 Encounter for screening for COVID-19; F17.210 Nicotine dependence, cigarettes, uncomplicated; Z85.41 Personal history of malignant neoplasm of cervix uteri; I10 Essential (primary) hypertension
CPT/HCPCS: 71045; 80053; 85025; 85378; 87637; 93005; 94640; 96372; 99285; J1100

== ENCOUNTER 2024-10-21 12:00 | Outpatient (CLI) | payer OTHER, SELFPAY | END 2024-10-21 12:01 | disposition home or self-care (01) | LOC: RT 12:00 | PROVIDERS: PCP Clinical Nurse Specialist Adult Health; Visit Provider Clinical Nurse Specialist Adult Health | DX: J44.9 Chronic obstructive pulmonary disease, unspecified (principal) | CPT/HCPCS: 94010 ==

== ENCOUNTER 2024-10-23 09:59 | Outpatient (CLI) | payer OTHER, SELFPAY ==
--- NOTE | 2024-10-23 10:00 | CT_ITS ---
WS: [id number] CT CHEST AND ABDOMEN TECHNIQUE: Noncontrast CT of the chest and abdomen with coronal and sagittal reformatted images.. CLINICAL INFORMATION: R05.8 - Other specified cough COMPARISON: None. DLP: 831.[address] scans at [facility] use at least one of these dose optimization techniques: automated exposure control; mA and/or kV adjustment per patient size (includes targeted exams where dose is matched to clinical indication); or iterative reconstruction. CT CHEST: Lungs are well aerated. No acute pulmonary infiltrates. No focal pneumonia or pleural fluid. No suspicious pulmonary parenchymal opacities. Normal caliber thoracic aorta. No mediastinal or hilar lymphadenopathy. No axillary lymphadenopathy. Mild thoracic curve. CT ABDOMEN: Hepatomegaly. Mild splenomegaly. Prior cholecystectomy. Small esophageal hiatal hernia. Normal noncontrast pancreas. Adrenal glands are normal. No hydronephrosis in either kidney. Normal caliber abdominal aorta. Tiny fat-containing umbilical hernia. Small splenule. CT/CT chest abd [id number] IMPRESSION: 1. Lungs are well aerated. No acute pulmonary infiltrates. 2. Mild hepatomegaly and splenomegaly. 3. Small esophageal hiatal hernia. 4. Tiny fat-containing umbilical hernia. 5. Prior cholecystectomy 6. No other acute findings.
== END 2024-10-23 10:00 | disposition home or self-care (01) ==
LOC: RAD 10:00
PROVIDERS: PCP Clinical Nurse Specialist Adult Health; Visit Provider Clinical Nurse Specialist Adult Health
DX: R05.8 Other specified cough (principal); R16.0 Hepatomegaly, not elsewhere classified; R16.1 Splenomegaly, not elsewhere classified; K44.9 Diaphragmatic hernia without obstruction or gangrene; Z90.49 Acquired absence of other specified parts of digestive tract; M43.8X4 Other specified deforming dorsopathies, thoracic region; R93.89 Abnormal findings on diagnostic imaging of other specified body structures
CPT/HCPCS: 71250; 74150

== ENCOUNTER 2024-11-22 12:03 | Emergency (ER) | payer OTHER, SELFPAY ==
[2024-11-22 12:04] VITALS: BP 148/81; PULSE 94; TEMP 36.9; O2SAT 98; BMI 40.2
--- NOTE | 2024-11-22 14:14 | ED_ITS ---
HPI - Back Pain/Injury General: Chief Complaint: Back Pain/Injury Stated Complaint: pain on L side Time Seen by Provider: 11/22/24 14:14 History of Present Illness: 44-year-old female comes in today with r ight posterior rib pain. Patient reports that she has had a cough since August and is diagnosed with COPD and is awaiting follow-up with a clinical exercise physiologist in [place]. Patient denies any falls or injuries. Patient reports no fever or chills. Patient appears in mild pain at rest. Related Data Home Medications ?Medication ?Instructions ?Recorded ?Confirmed ibuprofen 200 mg tablet (Advil) 200 - 400 mg PO PRN FL N Pain 06/24/20 11/22/24 Previous Rx's ?Medication ?Instructions ?Recorded losartan 25 mg tablet 25 mg PO BID #60 tabs Nebulizer machine and supplies #1 ea 08/31/24 pantoprazole 40 mg tablet,delayed 40 mg PO DAILY #30 t abs 10/12/24 release sucralfate 1 gram tablet (Carafate) 1 g PO TID #90 tab s 10/12/24 albuterol sulfate 90 mcg/actuation 1 inh inhalation QI D PRN Shortness 11/09/24 aerosol inhaler Of Breath #8.5 grams bupropion HCl 100 mg tablet,12 hr 100 mg PO QAM #30 ta bs 11/09/24 sustained-release (Wellbutrin SR) fluticasone 232 mcg-salmeterol 14 1 inh inhalation BID #1 ea 11/09/24 mcg/actuation breath activated powdr (AirDuo RespiClick) ipratropium 0.5 mg-albuterol 3 mg 3 ml inhalation Q4H PRN shortness 11/09/24 (2.5 mg base)/3 mL nebulization of breath or wheezing #90 mL soln tiotropium bromide 2.5 2 puff inhalation DAILY #4 g chichi 11/09/24 mcg/actuation mist for inhalation (Spiriva Respimat) methocarbamol 750 mg tablet 750 mg PO Q6H PRN muscle p ain #30 11/22/24 tabs Allergies Allergy/AdvReac Type Severity Reaction Status Date / Time Iodinated Contrast Media Allergy ALGY-Difficulty Verified 11/22/24 12:08 Breathing naproxen Allergy ALGY-Difficulty Verified 11/22/24 12:08 Breathing Review of Systems General: Reports: 10 or more systems reviewed and unremarkable except in HPI and below PFSH ED PFSH: Medical History Vertigo COPD (chronic obstructive pulmonary disease) Essential hypertension GERD (gastroesophageal reflux disease) Generalized osteoarthritis Tobacco dependence Morbid obesity Hx of cervical cancer with removal of part of her cervix Surgical History Hx of colposcopy with cervical biopsy Hx of tubal ligation Hx of cholecystectomy Family History Other CAD (coronary artery disease) Heart disease Lung cancer Social History Smoking and tobacco/nicotine status: current every day tobacco/nicotine user cigarettes Packs smoked per day: 2 Years cigarettes smoked: 30 Alcohol intake: never Substance/Drug Use: never Household members: spouse Physical Exam Const: COMMON NORMALS: alert HENMT: COMMON NORMALS: normocephalic HEAD & SCALP: normocephalic Neck/C-Spine: COMMON NORMALS: full ROM and no meningeal signs Chest: CHEST: Yes tenderness (Left posterior lateral ribs) Resp: COMMON NORMALS: normal respiratory effort and clear to auscultation bilaterally AUSCULTATION: clear to auscultation bilaterally Cardio: COMMON NORMALS: regular rate and regular rhythm RATE: regular rate RHYTHM: regular rhythm GI: COMMON NORMALS: non-tender Back/Pelvis: COMMON NORMALS: thoracic and lumbar spine normal to inspection Extremity: COMMON NORMALS: full ROM Neuro: SENSORIUM/ORIENTATION: Yes alert MENINGEAL SIGNS: Yes no meningeal signs Skin: COMMON NORMALS: turgor normal GENERAL SKIN EXAM: turgor normal Course Vital Signs: Vital signs: Vital Signs Temperature 98.4 F 11/22/24 12:04 Pulse Rate 94 11/22/24 12:04 Blood Pressure 148/81 11/22/24 12:04 Pulse Oximetry 98 11/22/24 12:04 Oxygen Delivery Me thod Room Air 11/22/24 12:04 MDM - Back Pain/Injury Medical Decision Making 44-year-old female comes in today for complaints of left lateral posterior rib pain. On exam patient has tenderness in the left lateral posterior ribs. No crepitus or subcu emphysema is noted. No spinal tenderness is noted. Vital signs are normal. Differential diagnosis includes costochondritis, rib fracture, muscle strain, pneumonia. Chest x-ray noted no abnormalities. Rib films noted no abnormalities. Reviewed exam with patient with recommendation for treatment and follow-up. Patient reports understanding agreed to plan. XR interpretation done by ED provider, pending radiology final review Discharge Plan Discharge Patient Disposition: Home Clinical Impression: Rib pain on left side Condition: Stable Prescriptions: New methocarbamol 750 mg tablet 750 mg PO Q6H PRN (Reason: muscle pain) Qty: 30 0RF No Action losartan 25 mg tablet 25 mg PO BID Qty: 60 11RF albuterol sulfate 90 mcg/actuation HFA aerosol inhaler 1 inh INHALATION QID PRN (Reason: Shortness Of Breath) Qty: 8.5 6RF bupropion HCl [Wellbutrin SR] 100 mg tablet sustained-release 12 hr 100 mg PO QAM Qty: 30 11RF ipratropium-albuterol 0.5 mg-3 mg(2.5 mg base)/3 mL solution for nebulization 3 ml inhalation Q4H PRN (Reason: shortness of breath or wheezing) Qty: 90 6RF Spiriva Respimat 2.5 mcg/actuation mist 2 puff inhalation DAILY Qty: 4 11RF fluticasone propion-salmeterol [AirDuo RespiClick] 232-14 mcg/actuation aerosol powdr breath activated 1 inh inhalation BID Qty: 1 11RF pantoprazole 40 mg tablet,delayed release (DR/EC) 40 mg PO DAILY Qty: 30 3RF sucralfate [Carafate] 1 gram tablet 1 g PO TID Qty: 90 3RF (DME) Nebulizer machine and supplies See Rx Instructions .ROUTE .MEDSUPPLY Qty: 1 11RF Rx Instructions: As directed ibuprofen [Advil] 200 mg Tablet 200 - 400 mg PO PRN PRN (Reason: Pain) Discharge Orders: Discharge ED (Routine); Ordered 11/22/24 Ordered By: Stas Fabian Referrals: Davian Molina, [employer] [Primary Care Provider] - Discharge Diet: Usual diet Discharge Activity: Increase activity as tolerated Patient Instructions: Rib Contusion (ED) Activity Restrictions/Additional Instructions: Continue activity as tolerated. Use methocarbamol and Tylenol for pain control. Use ice or heat for further pain relief. Follow-up with primary care for further instructions. Return to ED for new concerns. Print Language: Urdu Coding Level of Care Code ED Lead Qa Analyst for Paola Gomez
--- NOTE | 2024-11-22 14:17 | XRR_ITS ---
PROCEDURE INFORMATION: Exam: XR Left Ribs with PA Chest Exam date and time: 11/22/2024 2:23 PM Age: 44 years old Clinical indication: Painful respiration; Lt posterior rib pain after coughing this am and felt pop; Cough; SOB; Copd; HTN TECHNIQUE: Imaging protocol: Radiologic exam of the left ribs with PA chest. Views: 3 views COMPARISON: CT chest abd wo [id number] 10/23/2024 10:13 AM FINDINGS: Lungs: Unremarkable. No consolidation. Pleural spaces: Unremarkable. No pleural effusion. No pneumothorax. Heart/Mediastinum: Unremarkable. No cardiomegaly. Bones/joints: Unremarkable. XR/XR ribs LT mn 3V w [id number] IMPRESSION: 1. No acute cardiopulmonary process. 2. No acute fracture or dislocation.
[2024-11-22 15:16] VITALS: BP 133/74; PULSE 82; RESP 16; O2SAT 97
== END 2024-11-22 15:13 | disposition home or self-care (01) ==
PROVIDERS: Emergency Provider Nurse Practitioner Family; PCP Clinical Nurse Specialist Adult Health
DX: R07.81 Pleurodynia (principal); F17.210 Nicotine dependence, cigarettes, uncomplicated; Z85.41 Personal history of malignant neoplasm of cervix uteri; J44.9 Chronic obstructive pulmonary disease, unspecified; I10 Essential (primary) hypertension
CPT/HCPCS: 71101; 99283